=== PATIENT | female | born 1935 | race Caucasian/White ===

== ENCOUNTER 2017-12-30 10:50 | Inpatient (IN) ==
--- NOTE | 2017-12-30 11:43 | Emergency Department Note ---
ED Disposition Clinical Impression: Recurrent pneumonia Disposition: Still a Patient Condition on Discharge: Fair Referrals: Damien Bird MD [Primary Care Provider] - - Critical Care Critical Care Time: No Attestation: On 12/30/17, the high probability of a clinically significant, sudden or life threatening deterioration of the following system(s) required my full and direct attention, intervention and personal management. The time I documented below is in addition to time spent performing reported procedures but includes the following listed in this critical care notation. Medical Decision Making - Carlos A Inquiry Pt receiving controlled substance: No Vital Signs: 12/30/17 11:05 12/30/17 11:25 12/30/17 12:15 Pulse Rate 100 H Pulse Rate [Right Brachial] 88 107 H Respiratory Rate 22 18 Blood Pressure [Right Arm] 135/79 135/79 Blood Pressure Mean [Right Arm] 97 97 Blood Pressure Source [Right Arm] Automatic Cuff Blood Pressure Position [Right Arm] Sitting 02 Sat by Pulse Oximetry 96 97 98 Oxygen Delivery Method Non-Rebreather Nasal Cannula Non-Rebreather Oxygen Flow Rate (LPM) 2 15 - Lab Data Lab Results 12/30/17 11:13: Specimen Source Right brachial, O2 % 100%, ABG pH 7.44, ABG pCO2 44.2, ABG pO2 74.4 L, ABG HCO3 29.3 H, ABG Total CO2 30.7 H, ABG O2 Saturation 95, ABG Base Excess 5.2 H, [place] Test Non applicable 12/30/17 11:44: WBC 9.9, RBC 3.64 L, Hgb 11.8 L, Hct 38.8, MCV 106.6 H, MCH 32.4 H, MCHC 30.4 L, RDW 15.2, Plt Count 217, MPV 8.1, Neut % (Auto) 80.8 H, Lymph % (Auto) 10.2, [place] % (Auto) 8.4, Eos % (Auto) 0.4, Baso % (Auto) 0.2, Neut # (Auto) 8.0 H, Lymph # (Auto) 1.0, [place] # (Auto) 0.8, Eos # (Auto) 0.0, Baso # (Auto) 0.0 12/30/17 11:44: Sodium 140, Potassium 3.5, Chloride 102, Carbon Dioxide 33 H, Anion Gap 8.5, BUN 19 H, Creatinine 0.97, Estimated Creat Clear 39, Estimated GFR 55 L, Est GFR ( Amer) 66, Glucose 127 H, Calcium 9.0, Total Bilirubin 0.6, AST 13 L, ALT 11 L, Alkaline Phosphatase 69, Total Creatine Kinase 16 L, CK-MB (CK-2) < 0.5, CK-MB (CK-2) Rel Index 3.1, Troponin I 0.06, Total Protein 5.9 L, Albumin 2.6 L, Globulin 3.3 H, Albumin/Globulin Ratio 0.8 L 12/30/17 11:44: Lactic Acid 2.4 H 12/30/17 11:44: B-Natriuretic Peptide 449 H 12/30/17 11:44: TSH 0.23 L, Free T4 Index 3.8 L, Thyroxine (T4) 9.6, T3 Uptake 40 H Result diagrams: 12/30/17 11:44 12/30/17 11:44 Orders (Tests/Meds): ORDERS Category Date Time Status Lactic Acid Follow Up (4 hr) Stat Lab 12/30/17 12:18 Ordered Blood Culture Stat Micro 12/30/17 11:44 Received ECG Request by /Irma Stat Y 12/30/17 11:13 Ordered - Radiology Data #1 Image(s): Chest Image Reviewed: Yes I reviewed the patient's radiology image Right mid and lower lung infiltrates - ECG Data Tracing #1 EKG interpreted by Khadar Lewis MD: Rhythm: sinus tachycardia Rate: 107 [place]: normal Ectopy: none Conduction: normal ST Segment Changes: Nonspecific T Wave Changes: none Q Waves: none No evidence of acute ischemia or injury Medical Decision Narrative: 12:50 PM: I have discussed the case with Dr. Reyes for Dr. Bird who agrees to admit the patient to the hospital. We discussed the patient's clinical information, including history, exam, laboratory and radiology results and ED course. Per hospital procedure, I will write temporary bridge inpatient orders on the patient. Specific orders requested by the admitting physician: Vancomycin, clindamycin, and tobramycin General Adult HPI - General Chief complaint: Shortness of Breath/Dyspnea Stated complaint: sob weakness Time Seen by Provider: 12/30/17 11:43 Mode of Arrival: Wheelchair Limitations: No Limitations Description of Symptoms (Recalled from ER Triage Doc. by RN): shortness of air; - History of Present Illness HPI narrative: states that at 4 AM the patient became very weak and oxygen saturation was low. She has a history of recurrent pneumonia. Since October she has been hospitalized 3 times for pneumonia. Family states she got out of the hospital 2 weeks ago. Prior to that she had been on oxygen at night as needed, now is on oxygen 2.5 L 24 hours a day. She had a fever on 3 days ago. It went away with Tylenol. She denies shortness of air currently, denies pain. Family states no vomiting or diarrhea. She does have some chronic problems with swallowing related to previous meningioma, stroke, and throat surgery. Apparently there is some suspicion for aspiration pneumonia. They states she does not really choke much when she eats. She is on thickened liquids. No history of COPD, has never been a smoker. She is on breathing treatments twice a day. She uses an incentive spirometer. - Related Data Home Medications Medication Instructions Recorded Confirmed ALPRAZolam [Xanax 1mg tab] 1 mg PO TIDP PRN 10/16/17 12/30/17 Gabapentin [Gabapentin 300mg Cap] 300 mg PO TID 10/16/17 12/30/17 Metformin HCl [Metformin 500mg 500 mg PO BID 10/16/17 12/30/17 Tablet] Metoprolol Tartrate [Lopressor 25 mg PO BID 10/16/17 12/30/17 25mg tablet] Morphine Sulfate [Morphine Sulfate 30 mg PO HS 10/16/17 12/30/17 ER 30mg Cap] Ropinirole HCl 1 mg PO HS 10/16/17 12/30/17 levETIRAcetam [Levetiracetam] 500 mg PO BID 10/16/17 12/30/17 levothyroxine 75 mcg tablet 75 mcg PO DAILY tab 10/23/17 12/30/17 Aspirin [Aspir 81] 81 mg PO DAILY 10/29/17 12/30/17 Ticagrelor [Brilinta 90mg Tablet] 90 mg PO BID 10/29/17 12/30/17 Pantoprazole Sodium [Protonix 40mg 40 mg PO DAILY 12/03/17 12/30/17 tablet] Umeclidinium Brm/Vilanterol Tr 1 each IH CONSULT PHARMACY 12/03/17 12/30/17 [Anoro Ellipta 62.5-25 Mcg INH] Ipratropium [place] [Atrovent 0.5 mg IH BID 12/30/17 12/30/17 0.5mg/2.5mL neb] Previous Rx's Medication Instructions Recorded Albuterol Sulfate [Albuterol 2.5 mg IH BIDRT #60 vial.neb 12/10/17 0.083% 2.5mg/3mL neb] Allergies Allergy/AdvReac Type Severity Reaction Status Date / Time loratadine [From CLARITIN] AdvReac Intermediate Drowsy Verified 12/03/17 07:23 [facility] History I have reviewed the patient's past medical history: Yes Medical History: Reports:: Anxiety, Atrial Fibrillation, Congestive Heart Failure, Chronic Obstructive Pulmonary Disease (COPD), Cerebrovascular Accident , Hypertension, Seizures Denies:: Cancer, Diabetes Mellitus Type 1, Diabetes Mellitus Type 2, MRSA Other Medical History: Reports: Hypothyroidism Laterality Cases: Bilateral: Tonsillectomy Other Surgeries: Yes: Hysterectomy-Total, Other ([facility]-stents) Amputation: No Fractures: No Comment: Excision of benign meningiomas - Social History Educational Level: Completed High School Smoking Status: Never smoker Alcohol Intake: never Alcohol Intake Frequency:: other Substance Use Type: denies use Occupational Status: disabled Housing: house Household Members: spouse, family - Psychiatric History Expresses thoughts of harming self/others: None Suicide Plan Description: No Plan Pschychiatric History:: Reports:: Anxiety Family Hx:: No significant family history ROS Obtained: Yes All systems reviewed & no additional complaints - Constitutional Constitutional: Reports fever(s), Reports weakness - Cardiovascular Cardiovascular: Denies chest pain - Respiratory Respiratory: Yes cough, Yes dyspnea - Gastrointestinal Gastrointestingal: Denies: abdominal pain, diarrhea, vomiting Physical Exam - General General appearance: alert, in no apparent distress - Head Head exam: atraumatic, normocephalic, normal inspection - Eye Eye exam: Present: normal appearance, PERRL, EOMI - ENT ENT exam: Present: normal exam, normal oropharynx, mucous membranes moist, TM's normal bilaterally, normal external ear exam - Neck Neck exam: Present: normal inspection, full ROM, trachea midline. Absent: meningismus, lymphadenopathy - Chest Chest inspection: Present: normal inspection, symmetric chest wall rise. Absent : tenderness - Respiratory Respiratory exam: Present: normal lung sounds bilaterally. Absent: respiratory distress - Cardiovascular Cardiovascular exam: Present: regular rate, normal rhythm. Absent: JVD - Abdominal Exam Abdominal exam: Present: soft, normal bowel sounds. Absent: distention, tenderness, guarding - Extremities Exam Extremities exam: Present: normal inspection, full ROM, normal capillary refill. Absent: calf tenderness - Back Exam Back exam: Present: normal inspection. Absent: tenderness - Neurological Exam Neurological exam: Present: alert, oriented X3 - Psychiatric Psychiatric exam: Present: normal affect, normal mood - Skin Skin exam: Present: warm, dry, intact, normal color - Lymphatic Lymphatic Findings: no adenopathy
[2017-12-30 12:04] LABS: Basophils % 0.2 % (0.1-2.0); Eosinophils % 0.4 % (0.1-12.0); Hematocrit 38.8 % (37.0-47.0); Hemoglobin 11.8 g/dL (12.2-16.2); Lymphocytes % 10.2 K/mm3 (10-50); Mean Corpuscular HGB Conc 30.4 g/dL (31.8-35.4); Mean Corpuscular Hemoglobin 32.4 pg (27.0-31.2); Mean Corpuscular Volume 106.6 fl (81-99); Mean Platelet Volume 8.1 fl (7.4-10.4); Monocytes # 0.8 K/mm3 (0.1-1.0); Monocytes % 8.4 % (1.7-9.3); Neutrophils % 80.8 % (37.0-80.0); Platelet Count 217 K/mm3 (142-424); Red Blood Count 3.64 M/mm3 (4.20-5.40); Red Cell Distribution Width 15.2 % (11.5-17.5); White Blood Count 9.9 K/mm3 (4.8-10.8)
[2017-12-30 12:21] LABS: ABG Base Excess 5.2 mmol/L (-2.4-2.3); ABG HCO3 29.3 mmhg (22.0-26.0); ABG Oxygen Saturation 95 % (90-100); ABG PCO2 44.2 mmhg (35.0-45.0); ABG PH 7.44 mmol/L (7.35-7.45); ABG PO2 74.4 mmhg (80-100); ABG TCO2 30.7 mmhg (23-27)
[2017-12-30 12:25] LABS: Allen's Test Non Applicable; Oxygen 100% %
[2017-12-30 12:25] LABS: Free Thyroxine Index 3.8 ug/dL (5.93-13.13); T4 (Thyroxine) 9.6 ug/dl (4.7-13.3); Thyroid Stimulating Hormone 0.23 uIU/ml (0.358-3.740)
[2017-12-30 12:30] LABS: Alanine Aminotransferase 11 U/L (12-78); Albumin Level 2.6 gm/dL (3.4-5.0); Albumin/Globulin Ratio 0.8 (1.1-1.8); Alkaline Phosphatase 69 U/L (46-116); Anion Gap 8.5 mEq/L (5-15); Aspartate Amino Transferase 13 U/L (15-37); Bilirubin,Total 0.6 mg/dL (0.2-1.0); Blood Urea Nitrogen 19 mg/dL (7-18); Carbon Dioxide 33 mmol/L (21.0-32.0); Chloride 102 mmol/L (98-107); Creatine Kinase 16 U/L (26-192); Globulin 3.3 gm/dl (1.3-3.2); Glucose 127 mg/dL (74-106); Potassium 3.5 mmoL/L (3.5-5.1); Sodium 140 mmol/L (136-145); Total Protein,Serum 5.9 gm/dL (6.4-8.2)
--- NOTE | 2017-12-30 14:27 | Pharmacy Consult Notes ---
- Pharmacy Consult Date: 12/30/17 Time: 14:25 Referring provider: DR. ESPARZA Reason for Consult:: VANCOMYCIN AND TOBRAMYCIN DOSING Allergies and ADEs:: Allergies Allergy/AdvReac Type Severity Reaction Status Date / Time loratadine [From CLARITIN] AdvReac Intermediate Drowsy Verified 12/03/17 07:23 Home Medications:: Home Medications Medication Instructions Recorded Confirmed Type ALPRAZolam [Xanax 1mg tab] 1 mg PO TIDP PRN 10/16/17 12/30/17 History Gabapentin [Gabapentin 300mg Cap] 300 mg PO TID 10/16/17 12/30/17 History Metformin HCl [Metformin 500mg 500 mg PO BID 10/16/17 12/30/17 History Tablet] Metoprolol Tartrate [Lopressor 25 mg PO BID 10/16/17 12/30/17 History 25mg tablet] Morphine Sulfate [Morphine Sulfate 30 mg PO HS 10/16/17 12/30/17 History ER 30mg Cap] Ropinirole HCl 1 mg PO HS 10/16/17 12/30/17 History levETIRAcetam [Levetiracetam] 500 mg PO BID 10/16/17 12/30/17 History levothyroxine 75 mcg tablet 75 mcg PO DAILY tab 10/23/17 12/30/17 History Aspirin [Aspir 81] 81 mg PO DAILY 10/29/17 12/30/17 History Ticagrelor [Brilinta 90mg Tablet] 90 mg PO BID 10/29/17 12/30/17 History Pantoprazole Sodium [Protonix 40mg 40 mg PO DAILY 12/03/17 12/30/17 History tablet] Umeclidinium Brm/Vilanterol Tr 1 each IH CONSULT PHARMACY 12/03/17 12/30/17 History [Anoro Ellipta 62.5-25 Mcg INH] Ipratropium [place] [Atrovent 0.5 mg IH BID 12/30/17 12/30/17 History 0.5mg/2.5mL neb] Height: 1.57 m Weight: 58.967 kg Laboratory Results:: SRCR=0.97 Medical History: Reports:: Anxiety, Atrial Fibrillation, Cancer, Congestive Heart Failure, Chronic Obstructive Pulmonary Disease (COPD), Coronary Artery Disease, Cerebrovascular Accident, Diabetes Mellitus Type 2, Hyperlipidemia, Hypertension, Myocardial Infarction, Seizures Denies:: Diabetes Mellitus Type 1, MRSA Assessment and Plan - Assessment and plan all Dx Assessment and Plan for all problems:: BASED ON PATIENT FACTORS, RECOMMEND VANCOMYCIN 1250 MG IV Q36H AND TOBRAMYCIN 240 MG IV Q48H. PATIENT IS ALSO ON CLINDAMYCIN 600 MG IV Q6H. WILL OBTAIN TOBRAMYCIN LEVELS AT 4 AND 12 HOURS POST-INFUSION, AND A VANCOMYCIN TROUGH LEVEL PRIOR TO 3RD DOSE. PHARMACY WILL FOLLOW DAILY AND ADJUST APPROPRIATE.
--- NOTE | 2017-12-30 17:00 | History & Physical Report ---
*Admission Date: 12/30/17 *Chief complaint: Low oxygen sats, breathlessness *History of present illness: 82-year-old white female with known emphysema, recurrent pneumonia episodes and history of abnormal swallowing study who came to the emergency department this morning after her noticed that she was hard to arouse and that her O2 saturations were very low. In the emergency department she was found to have significant O2 saturation lowering, new infiltrates on chest x-ray to be mildly dehydrated. Review of records shows multiple admissions over the past month, recurrent pneumonia episodes. Abnormal barium swallow testing last admission. Family reports that she is on a pured diet at home. She is very frail and increasingly afflicted with anorexia. Patient herself reports that she has no pain. However is sluggish to communicate. [facility] History Medical History: Reports:: Anxiety, Atrial Fibrillation, Cancer, Congestive Heart Failure, Chronic Obstructive Pulmonary Disease (COPD), Coronary Artery Disease, Cerebrovascular Accident, Diabetes Mellitus Type 2, Hyperlipidemia, Hypertension, Myocardial Infarction, Seizures Denies:: Diabetes Mellitus Type 1, MRSA Other Medical History: Reports: Hypothyroidism Laterality Cases: Bilateral: Tonsillectomy Other Surgeries: Yes: Cardiac Catheterization, Hysterectomy-Total, Other ([facility]- stents) Amputation: No Fractures: No - *Social History Educational Level: Completed High School Smoking Status: Never smoker Alcohol Intake: never Alcohol Intake Frequency:: other Substance Use Type: denies use Occupational Status: disabled Housing: house Household Members: spouse, family - Psychiatric History Expresses thoughts of harming self/others: None Suicide Plan Description: No Plan Pschychiatric History:: Reports:: Anxiety *Family Hx:: No significant family history Review of Systems - Review of Systems Review of systems:: unable to obtain, other, pertinent systems reviewed and negative unless documented below - Constitutional Reports anorexia, Reports daytime sleepiness, Reports lack of energy - ENT Reports abnormal hearing - *Cardiovascular Reports shortness of breath, Denies chest pain, Denies chest pain at rest, Denies chest pain with activity - *Gastrointestinal Reports abdominal pain - *Musculoskeletal Reports abnormal walking - *Neurologic Reports weakness - Endocrine Denies cold intolerance, Denies excessive sweating - Hematologic/Lymphatic Denies easy bleeding, Denies easy bruising Meds Home Medications Medication Instructions Recorded Confirmed Type ALPRAZolam [Xanax 1mg tab] 1 mg PO TIDP PRN 10/16/17 12/30/17 History Gabapentin [Gabapentin 300mg Cap] 300 mg PO TID 10/16/17 12/30/17 History Metformin HCl [Metformin 500mg 500 mg PO BID 10/16/17 12/30/17 History Tablet] Metoprolol Tartrate [Lopressor 25 mg PO BID 10/16/17 12/30/17 History 25mg tablet] Morphine Sulfate [Morphine Sulfate 30 mg PO HS 10/16/17 12/30/17 History ER 30mg Cap] Ropinirole HCl 1 mg PO HS 10/16/17 12/30/17 History levETIRAcetam [Levetiracetam] 500 mg PO BID 10/16/17 12/30/17 History levothyroxine 75 mcg tablet 75 mcg PO DAILY tab 10/23/17 12/30/17 History Aspirin [Aspir 81] 81 mg PO DAILY 10/29/17 12/30/17 History Ticagrelor [Brilinta 90mg Tablet] 90 mg PO BID 10/29/17 12/30/17 History Pantoprazole Sodium [Protonix 40mg 40 mg PO DAILY 12/03/17 12/30/17 History tablet] Umeclidinium Brm/Vilanterol Tr 1 each IH CONSULT PHARMACY 12/03/17 12/30/17 History [Anoro Ellipta 62.5-25 Mcg INH] Cetirizine HCl 10 mg PO DAILYP PRN 12/30/17 12/30/17 History Ipratropium [place] [Atrovent 0.5 mg IH BID 12/30/17 12/30/17 History 0.5mg/2.5mL neb] Sennosides/Docusate Sodium [Stool 240 mg PO BID 12/30/17 12/30/17 History Softener-Laxative Tablet] Allergies Allergy/AdvReac Type Severity Reaction Status Date / Time loratadine [From CLARITIN] AdvReac Intermediate Drowsy Verified 12/03/17 07:23 Exam Vital signs and Labs for Last 24 Hours: Temp Pulse Resp BP Pulse Ox 100.1 F H 82 24 120/36 92 L 12/30/17 16:00 12/30/17 16:00 12/30/17 16:21 12/30/17 15:31 12/30/17 16:21 Laboratory Results - last 24 hr 12/30/17 16:00: Lactic Acid Fup @ 4Hr 1.3 I & O for Last 24 hours: Intake & Output 12/28/17 12/29/17 12/30/17 12/31/17 11:59 11:59 11:59 11:59 Weight 133 lb 6 oz Narrative: Patient is sleeping, when awakened is arousable, but poorly communicative. Very somnolent. Lungs have rhonchi and crackles in both bases. Abdomen is soft. Heart rate is regular. Perfusion in her distal extremities is sluggish but present. She able to move her extremities well. Assessment and Plan (1) Recurrent pneumonia Current visit: Yes Status: Acute Category: Medical Code(s): J18.9 - Pneumonia, unspecified organism (2) Acute exacerbation of chronic obstructive airways disease Current visit: No Status: Acute Category: Medical Code(s): J44.1 - Chronic obstructive pulmonary disease with (acute) exacerbation (3) Aspiration pneumonia Current visit: No Status: Acute Category: Medical Code(s): J69.0 - Pneumonitis due to inhalation of food and vomit (4) CAP (community acquired pneumonia) Current visit: No Status: Acute Qualifiers: Laterality: right Lung location: unspecified part of lung Qualified Code( s): J18.9 - Pneumonia, unspecified organism Category: Medical Code(s): J18.9 - Pneumonia, unspecified organism (5) COPD exacerbation Current visit: No Status: Acute Category: Medical Code(s): J44.1 - Chronic obstructive pulmonary disease with (acute) exacerbation (6) Chest pain Current visit: No Status: Acute Qualifiers: Chest pain type: other chest pain Qualified Code(s): R07.89 - Other chest pain; R07.8 - Other chest pain Category: Medical Code(s): R07.9 - Chest pain, unspecified (7) Hypoxia Current visit: No Status: Acute Category: Medical Code(s): R09.02 - Hypoxemia (8) Pneumonia Current visit: No Status: Acute Qualifiers: Pneumonia type: aspiration pneumonia Aspiration pneumonia type: unspecified Laterality: right Lung location: lower lobe of lung Qualified Code(s): J69.0 - Pneumonitis due to inhalation of food and vomit Category: Medical Code(s): J18.9 - Pneumonia, unspecified organism (9) Pneumonia of right lower lobe due to infectious organism Current visit: No Status: Acute Category: Medical Code(s): J18.1 - Lobar pneumonia, unspecified organism (10) Seizure disorder Current visit: No Status: Acute Category: Medical Code(s): G40.909 - Epilepsy, unspecified, not intractable, without status epilepticus (11) Unstable angina Current visit: No Status: Acute Category: Medical Code(s): I20.0 - Unstable angina (12) COPD (chronic obstructive pulmonary disease) Current visit: No Status: Chronic Category: Medical Code(s): J44.9 - Chronic obstructive pulmonary disease, unspecified (13) CVA (cerebral vascular accident) Current visit: No Status: Chronic Qualifiers: CVA mechanism: unspecified Qualified Code(s): I63.9 - Cerebral infarction, unspecified Category: Medical Code(s): I63.9 - Cerebral infarction, unspecified (14) Coronary artery disease Current visit: No Status: Chronic Qualifiers: Coronary Disease-Associated Artery/Lesion type: [place] artery [place] vs. transplanted heart: [place] heart Associated angina: angina presence unspecified Qualified Code(s): I25.10 - Atherosclerotic heart disease of [place] coronary artery without angina pectoris Category: Medical Code(s): I25.10 - Atherosclerotic heart disease of [place] coronary artery without angina pectoris (15) Diabetes mellitus type 2 in nonobese Current visit: No Status: Chronic Category: Medical Code(s): E11.9 - Type 2 diabetes mellitus without complications (16) HLD (hyperlipidemia) Current visit: No Status: Chronic Qualifiers: Hyperlipidemia type: other hyperlipidemia Qualified Code(s): E78.4 - Other hyperlipidemia Category: Medical Code(s): E78.5 - Hyperlipidemia, unspecified (17) HTN (hypertension) Current visit: No Status: Chronic Qualifiers: Hypertension type: essential hypertension Qualified Code(s): I10 - Essential (primary) hypertension Category: Medical Code(s): I10 - Essential (primary) hypertension (18) History of cancer of head or neck Current visit: No Status: Chronic Category: Medical Code(s): Z85.89 - Personal history of malignant neoplasm of other organs and systems (19) Mitral regurgitation Current visit: No Status: Chronic Qualifiers: Cardiac valve disease etiology: nonrheumatic Qualified Code(s): I34.0 - Nonrheumatic mitral (valve) insufficiency Category: Medical Code(s): I34.0 - Nonrheumatic mitral (valve) insufficiency (20) Pulmonary hypertension Current visit: No Status: Chronic Category: Medical Code(s): I27.20 - Pulmonary hypertension, unspecified (21) SOB (shortness of breath) Current visit: No Status: Chronic Category: Medical Code(s): R06.02 - Shortness of breath - Assessment and plan all Dx Assessment and Plan for all problems:: Significant disease burden in this aged female with repetitive pneumonias and end-stage emphysema. Aggressive antibiotic therapy with vancomycin, clindamycin for anaerobic/aspiration coverage and tobramycin given her recent hospitalization and risk for Pseudomonas. Observe labs tomorrow. Continue current medications from home.
--- NOTE | 2017-12-31 07:17 | Progress Note ---
Internal Medicine - PN: Subj *Date: 12/31/17 *Time: 07:15 Interval history: Patient is without complaints this morning. Her is at bedside. Her night was uneventful. Her does tell me that she really struggles with thickened liquids at home and has been drinking plain orange juice as well as coffee and Glucerna. He continues to use her incentive spirometer at home and inspiratory effort can produce 500 mL's. Exam Vital signs and Labs for Last 24 Hours: Temp Pulse Resp BP Pulse Ox 98.7 F 69 16 96/58 90 L 12/31/17 03:43 12/31/17 05:54 12/31/17 03:43 12/31/17 03:43 12/31/17 05:54 Laboratory Results - last 24 hr 12/30/17 16:00: Lactic Acid Fup @ 4Hr 1.3 12/30/17 22:05: Random Tobramycin 8.9 12/31/17 06:30: Random Tobramycin 4.4 I & O for Last 24 hours: Intake & Output 12/28/17 12/29/17 12/30/17 12/31/17 11:59 11:59 11:59 11:59 Output Total 50 / 50 Balance -50 / -50 Weight 135 lb 6 oz Narrative: Patient is in no distress and appears comfortable this morning. Nasal cannula is in place. Lung exam reveals significant right-sided rhonchi heard throughout the entire right lung field. Left sound has primarily transmitted sounds from the right. Heart has a regular rate and rhythm. Assessment and Plan (1) Recurrent pneumonia Current visit: Yes Status: Acute Category: Medical Code(s): J18.9 - Pneumonia, unspecified organism (2) Acute exacerbation of chronic obstructive airways disease Current visit: No Status: Acute Category: Medical Code(s): J44.1 - Chronic obstructive pulmonary disease with (acute) exacerbation (3) Aspiration pneumonia Current visit: No Status: Acute Category: Medical Code(s): J69.0 - Pneumonitis due to inhalation of food and vomit (4) CAP (community acquired pneumonia) Current visit: No Status: Acute Qualifiers: Laterality: right Lung location: unspecified part of lung Qualified Code( s): J18.9 - Pneumonia, unspecified organism Category: Medical Code(s): J18.9 - Pneumonia, unspecified organism (5) COPD exacerbation Current visit: No Status: Acute Category: Medical Code(s): J44.1 - Chronic obstructive pulmonary disease with (acute) exacerbation (6) Chest pain Current visit: No Status: Acute Qualifiers: Chest pain type: other chest pain Qualified Code(s): R07.89 - Other chest pain; R07.8 - Other chest pain Category: Medical Code(s): R07.9 - Chest pain, unspecified (7) Hypoxia Current visit: No Status: Acute Category: Medical Code(s): R09.02 - Hypoxemia (8) Pneumonia Current visit: No Status: Acute Qualifiers: Pneumonia type: aspiration pneumonia Aspiration pneumonia type: unspecified Laterality: right Lung location: lower lobe of lung Qualified Code(s): J69.0 - Pneumonitis due to inhalation of food and vomit Category: Medical Code(s): J18.9 - Pneumonia, unspecified organism (9) Pneumonia of right lower lobe due to infectious organism Current visit: No Status: Acute Category: Medical Code(s): J18.1 - Lobar pneumonia, unspecified organism (10) Seizure disorder Current visit: No Status: Acute Category: Medical Code(s): G40.909 - Epilepsy, unspecified, not intractable, without status epilepticus (11) Unstable angina Current visit: No Status: Acute Category: Medical Code(s): I20.0 - Unstable angina (12) COPD (chronic obstructive pulmonary disease) Current visit: No Status: Chronic Category: Medical Code(s): J44.9 - Chronic obstructive pulmonary disease, unspecified (13) CVA (cerebral vascular accident) Current visit: No Status: Chronic Qualifiers: CVA mechanism: unspecified Qualified Code(s): I63.9 - Cerebral infarction, unspecified Category: Medical Code(s): I63.9 - Cerebral infarction, unspecified (14) Coronary artery disease Current visit: No Status: Chronic Qualifiers: Coronary Disease-Associated Artery/Lesion type: [place] artery [place] vs. transplanted heart: [place] heart Associated angina: angina presence unspecified Qualified Code(s): I25.10 - Atherosclerotic heart disease of [place] coronary artery without angina pectoris Category: Medical Code(s): I25.10 - Atherosclerotic heart disease of [place] coronary artery without angina pectoris (15) Diabetes mellitus type 2 in nonobese Current visit: No Status: Chronic Category: Medical Code(s): E11.9 - Type 2 diabetes mellitus without complications (16) HLD (hyperlipidemia) Current visit: No Status: Chronic Qualifiers: Hyperlipidemia type: other hyperlipidemia Qualified Code(s): E78.4 - Other hyperlipidemia Category: Medical Code(s): E78.5 - Hyperlipidemia, unspecified (17) HTN (hypertension) Current visit: No Status: Chronic Qualifiers: Hypertension type: essential hypertension Qualified Code(s): I10 - Essential (primary) hypertension Category: Medical Code(s): I10 - Essential (primary) hypertension (18) History of cancer of head or neck Current visit: No Status: Chronic Category: Medical Code(s): Z85.89 - Personal history of malignant neoplasm of other organs and systems (19) Mitral regurgitation Current visit: No Status: Chronic Qualifiers: Cardiac valve disease etiology: nonrheumatic Qualified Code(s): I34.0 - Nonrheumatic mitral (valve) insufficiency Category: Medical Code(s): I34.0 - Nonrheumatic mitral (valve) insufficiency (20) Pulmonary hypertension Current visit: No Status: Chronic Category: Medical Code(s): I27.20 - Pulmonary hypertension, unspecified (21) SOB (shortness of breath) Current visit: No Status: Chronic Category: Medical Code(s): R06.02 - Shortness of breath - Assessment and plan all Dx Assessment and Plan for all problems:: Patient will have repeat swallowing evaluation today. Recurrent pneumonias are certainly suspicious for aspiration. We will await swallowing evaluation and then decide on further interventions. Patient and family have requested pulmonology evaluation
--- NOTE | 2017-12-31 08:42 | Pharmacy Consult Notes ---
[facility] Pharmacy VTE Monitoring - Patient Demographics Admission date: 12/30/17 Report Date: 12/31/17 Time: 08:42 Allergies/Adverse Reactions: Patient Allergies loratadine [From CLARITIN] Adverse Reaction (Intermediate, Verified 12/03/17 07: 23) Drowsy Height: 1.57 m Weight: 61.405 kg Patient Problems: Current Active Problems Recurrent pneumonia (Acute) - VTE Risk Labs: VTE Related Lab Results Hgb 11.8 g/dL (12.2-16.2) L 12/30/17 11:44 Hct 38.8 % (37.0-47.0) 12/30/17 11:44 Plt Count 217 K/mm3 (142-424) 12/30/17 11:44 BUN 19 mg/dL (7-18) H 12/30/17 11:44 Creatinine 0.97 mg/dL (0.55-1.02) 12/30/17 11:44 Estimated Creat Clear 39 mL/min (0-300) 12/30/17 11:44 VTE Risk Level: Moderate Risk - Prophylaxis VTE Prophylaxis Ordered?: Yes Types of VTE Prophylaxis: TEDS Knee High Location of Applied Device: Bilateral Lower Extremeties - VTE Diagnosis Confirmed Treatment or plan recommended: Continue Current Treatment
--- NOTE | 2017-12-31 11:13 | Pharmacy Consult Notes ---
- Pharmacy Consult Date: 12/31/17 Time: 11:11 Referring provider: DR. ESPARZA Reason for Consult:: TOBRAMYCIN LEVELS Allergies and ADEs:: Allergies Allergy/AdvReac Type Severity Reaction Status Date / Time loratadine [From CLARITIN] AdvReac Intermediate Drowsy Verified 12/03/17 07:23 Home Medications:: Home Medications Medication Instructions Recorded Confirmed Type ALPRAZolam [Xanax 1mg tab] 1 mg PO TIDP PRN 10/16/17 12/30/17 History Gabapentin [Gabapentin 300mg Cap] 300 mg PO TID 10/16/17 12/30/17 History Metformin HCl [Metformin 500mg 500 mg PO BID 10/16/17 12/30/17 History Tablet] Metoprolol Tartrate [Lopressor 25 mg PO BID 10/16/17 12/30/17 History 25mg tablet] Morphine Sulfate [Morphine Sulfate 30 mg PO HS 10/16/17 12/30/17 History ER 30mg Cap] Ropinirole HCl 1 mg PO HS 10/16/17 12/30/17 History levETIRAcetam [Levetiracetam] 500 mg PO BID 10/16/17 12/30/17 History levothyroxine 75 mcg tablet 75 mcg PO DAILY tab 10/23/17 12/30/17 History Aspirin [Aspir 81] 81 mg PO DAILY 10/29/17 12/30/17 History Ticagrelor [Brilinta 90mg Tablet] 90 mg PO BID 10/29/17 12/30/17 History Pantoprazole Sodium [Protonix 40mg 40 mg PO DAILY 12/03/17 12/30/17 History tablet] Umeclidinium Brm/Vilanterol Tr 1 puff IH DAILY 12/03/17 12/31/17 History [Anoro Ellipta 62.5-25 Mcg INH] Cetirizine HCl 10 mg PO DAILY 12/30/17 12/31/17 History Ipratropium [place] [Atrovent 2.5 ml IH BID 12/30/17 12/31/17 History 0.5mg/2.5mL neb] Sennosides/Docusate Sodium [Stool 240 mg PO BID 12/30/17 12/30/17 History Softener-Laxative Tablet] Albuterol Sulfate [Albuterol 3 ml IH BID 12/31/17 12/31/17 History 0.083% 2.5mg/3mL neb] Height: 1.57 m Weight: 61.405 kg Laboratory Results:: Laboratory Results - last 24 hr 12/30/17 16:00: Lactic Acid Fup @ 4Hr 1.3 12/30/17 22:05: Random Tobramycin 8.9 12/31/17 06:30: Random Tobramycin 4.4 Medical History: Reports:: Anxiety, Atrial Fibrillation, Cancer, Congestive Heart Failure, Chronic Obstructive Pulmonary Disease (COPD), Coronary Artery Disease, Cerebrovascular Accident, Diabetes Mellitus Type 2, Hyperlipidemia, Hypertension, Myocardial Infarction, Seizures Denies:: Diabetes Mellitus Type 1, MRSA Assessment and Plan (1) Recurrent pneumonia Current visit: Yes Status: Acute Category: Medical Code(s): J18.9 - Pneumonia, unspecified organism (2) Acute exacerbation of chronic obstructive airways disease Current visit: No Status: Acute Category: Medical Code(s): J44.1 - Chronic obstructive pulmonary disease with (acute) exacerbation (3) Aspiration pneumonia Current visit: No Status: Acute Category: Medical Code(s): J69.0 - Pneumonitis due to inhalation of food and vomit (4) CAP (community acquired pneumonia) Current visit: No Status: Acute Qualifiers: Laterality: right Lung location: unspecified part of lung Qualified Code( s): J18.9 - Pneumonia, unspecified organism Category: Medical Code(s): J18.9 - Pneumonia, unspecified organism (5) COPD exacerbation Current visit: No Status: Acute Category: Medical Code(s): J44.1 - Chronic obstructive pulmonary disease with (acute) exacerbation (6) Chest pain Current visit: No Status: Acute Qualifiers: Chest pain type: other chest pain Qualified Code(s): R07.89 - Other chest pain; R07.8 - Other chest pain Category: Medical Code(s): R07.9 - Chest pain, unspecified (7) Hypoxia Current visit: No Status: Acute Category: Medical Code(s): R09.02 - Hypoxemia (8) Pneumonia Current visit: No Status: Acute Qualifiers: Pneumonia type: aspiration pneumonia Aspiration pneumonia type: unspecified Laterality: right Lung location: lower lobe of lung Qualified Code(s): J69.0 - Pneumonitis due to inhalation of food and vomit Category: Medical Code(s): J18.9 - Pneumonia, unspecified organism (9) Pneumonia of right lower lobe due to infectious organism Current visit: No Status: Acute Category: Medical Code(s): J18.1 - Lobar pneumonia, unspecified organism (10) Seizure disorder Current visit: No Status: Acute Category: Medical Code(s): G40.909 - Epilepsy, unspecified, not intractable, without status epilepticus (11) Unstable angina Current visit: No Status: Acute Category: Medical Code(s): I20.0 - Unstable angina (12) COPD (chronic obstructive pulmonary disease) Current visit: No Status: Chronic Category: Medical Code(s): J44.9 - Chronic obstructive pulmonary disease, unspecified (13) CVA (cerebral vascular accident) Current visit: No Status: Chronic Qualifiers: CVA mechanism: unspecified Qualified Code(s): I63.9 - Cerebral infarction, unspecified Category: Medical Code(s): I63.9 - Cerebral infarction, unspecified (14) Coronary artery disease Current visit: No Status: Chronic Qualifiers: Coronary Disease-Associated Artery/Lesion type: [place] artery [place] vs. transplanted heart: [place] heart Associated angina: angina presence unspecified Qualified Code(s): I25.10 - Atherosclerotic heart disease of [place] coronary artery without angina pectoris Category: Medical Code(s): I25.10 - Atherosclerotic heart disease of [place] coronary artery without angina pectoris (15) Diabetes mellitus type 2 in nonobese Current visit: No Status: Chronic Category: Medical Code(s): E11.9 - Type 2 diabetes mellitus without complications (16) HLD (hyperlipidemia) Current visit: No Status: Chronic Qualifiers: Hyperlipidemia type: other hyperlipidemia Qualified Code(s): E78.4 - Other hyperlipidemia Category: Medical Code(s): E78.5 - Hyperlipidemia, unspecified (17) HTN (hypertension) Current visit: No Status: Chronic Qualifiers: Hypertension type: essential hypertension Qualified Code(s): I10 - Essential (primary) hypertension Category: Medical Code(s): I10 - Essential (primary) hypertension (18) History of cancer of head or neck Current visit: No Status: Chronic Category: Medical Code(s): Z85.89 - Personal history of malignant neoplasm of other organs and systems (19) Mitral regurgitation Current visit: No Status: Chronic Qualifiers: Cardiac valve disease etiology: nonrheumatic Qualified Code(s): I34.0 - Nonrheumatic mitral (valve) insufficiency Category: Medical Code(s): I34.0 - Nonrheumatic mitral (valve) insufficiency (20) Pulmonary hypertension Current visit: No Status: Chronic Category: Medical Code(s): I27.20 - Pulmonary hypertension, unspecified (21) SOB (shortness of breath) Current visit: No Status: Chronic Category: Medical Code(s): R06.02 - Shortness of breath - Assessment and plan all Dx Assessment and Plan for all problems:: BASED ON CALCULATED TOBRAMYCIN CMAX OF 11.42 MCG/ML AND CMIN OF 0.23 MCG/ML, RECOMMEND CONTINUING WITH CURRENT DOSE AND INTERVAL OF TOBRAMYCIN 240 MG Q48H AT THIS TIME. PHARMACY WILL FOLLOW DAILY AND ADJUST APPROPRIATE. ZOË FIELDS, PHARMD
--- NOTE | 2018-01-01 07:32 | Progress Note ---
Internal Medicine - PN: Subj *Date: 01/01/18 *Time: 07:31 Interval history: Patient complains of left arm pain this morning around the shoulder joint. Otherwise she denies complaints. She is now on honey thickened liquids which she is going to make an attempt to tolerate. She has admitted she does not like thickener in her liquids. But she is aware that this may help keep her from aspirating. Exam Vital signs and Labs for Last 24 Hours: Temp Pulse Resp BP Pulse Ox 99.1 F 70 16 136/46 90 L 01/01/18 03:37 01/01/18 06:03 01/01/18 03:37 01/01/18 03:37 01/01/18 06:03 I & O for Last 24 hours: Intake & Output 12/29/17 12/30/17 12/31/17 01/01/18 11:59 11:59 11:59 11:59 Intake Total 0 / 0 999 / 999 Output Total 50 / 50 350 / 350 Balance -50 / -50 649 / 649 Weight 135 lb 6 oz 137 lb 9 oz Narrative: She is in no distress. Lung exam continues to have rhonchi on the right although less prominent than yesterday. Heart has a regular rate and rhythm. Musculoskeletal exam reveals tenderness on the left lateral shoulder around the greater trochanter. Assessment and Plan (1) Recurrent pneumonia Current visit: Yes Status: Acute Category: Medical Code(s): J18.9 - Pneumonia, unspecified organism (2) Acute exacerbation of chronic obstructive airways disease Current visit: No Status: Acute Category: Medical Code(s): J44.1 - Chronic obstructive pulmonary disease with (acute) exacerbation (3) Aspiration pneumonia Current visit: No Status: Acute Category: Medical Code(s): J69.0 - Pneumonitis due to inhalation of food and vomit (4) CAP (community acquired pneumonia) Current visit: No Status: Acute Qualifiers: Laterality: right Lung location: unspecified part of lung Qualified Code( s): J18.9 - Pneumonia, unspecified organism Category: Medical Code(s): J18.9 - Pneumonia, unspecified organism (5) COPD exacerbation Current visit: No Status: Acute Category: Medical Code(s): J44.1 - Chronic obstructive pulmonary disease with (acute) exacerbation (6) Chest pain Current visit: No Status: Acute Qualifiers: Chest pain type: other chest pain Qualified Code(s): R07.89 - Other chest pain; R07.8 - Other chest pain Category: Medical Code(s): R07.9 - Chest pain, unspecified (7) Hypoxia Current visit: No Status: Acute Category: Medical Code(s): R09.02 - Hypoxemia (8) Pneumonia Current visit: No Status: Acute Qualifiers: Pneumonia type: aspiration pneumonia Aspiration pneumonia type: unspecified Laterality: right Lung location: lower lobe of lung Qualified Code(s): J69.0 - Pneumonitis due to inhalation of food and vomit Category: Medical Code(s): J18.9 - Pneumonia, unspecified organism (9) Pneumonia of right lower lobe due to infectious organism Current visit: No Status: Acute Category: Medical Code(s): J18.1 - Lobar pneumonia, unspecified organism (10) Seizure disorder Current visit: No Status: Acute Category: Medical Code(s): G40.909 - Epilepsy, unspecified, not intractable, without status epilepticus (11) Unstable angina Current visit: No Status: Acute Category: Medical Code(s): I20.0 - Unstable angina (12) COPD (chronic obstructive pulmonary disease) Current visit: No Status: Chronic Category: Medical Code(s): J44.9 - Chronic obstructive pulmonary disease, unspecified (13) CVA (cerebral vascular accident) Current visit: No Status: Chronic Qualifiers: CVA mechanism: unspecified Qualified Code(s): I63.9 - Cerebral infarction, unspecified Category: Medical Code(s): I63.9 - Cerebral infarction, unspecified (14) Coronary artery disease Current visit: No Status: Chronic Qualifiers: Coronary Disease-Associated Artery/Lesion type: [place] artery [place] vs. transplanted heart: [place] heart Associated angina: angina presence unspecified Qualified Code(s): I25.10 - Atherosclerotic heart disease of [place] coronary artery without angina pectoris Category: Medical Code(s): I25.10 - Atherosclerotic heart disease of [place] coronary artery without angina pectoris (15) Diabetes mellitus type 2 in nonobese Current visit: No Status: Chronic Category: Medical Code(s): E11.9 - Type 2 diabetes mellitus without complications (16) HLD (hyperlipidemia) Current visit: No Status: Chronic Qualifiers: Hyperlipidemia type: other hyperlipidemia Qualified Code(s): E78.4 - Other hyperlipidemia Category: Medical Code(s): E78.5 - Hyperlipidemia, unspecified (17) HTN (hypertension) Current visit: No Status: Chronic Qualifiers: Hypertension type: essential hypertension Qualified Code(s): I10 - Essential (primary) hypertension Category: Medical Code(s): I10 - Essential (primary) hypertension (18) History of cancer of head or neck Current visit: No Status: Chronic Category: Medical Code(s): Z85.89 - Personal history of malignant neoplasm of other organs and systems (19) Mitral regurgitation Current visit: No Status: Chronic Qualifiers: Cardiac valve disease etiology: nonrheumatic Qualified Code(s): I34.0 - Nonrheumatic mitral (valve) insufficiency Category: Medical Code(s): I34.0 - Nonrheumatic mitral (valve) insufficiency (20) Pulmonary hypertension Current visit: No Status: Chronic Category: Medical Code(s): I27.20 - Pulmonary hypertension, unspecified (21) SOB (shortness of breath) Current visit: No Status: Chronic Category: Medical Code(s): R06.02 - Shortness of breath - Assessment and plan all Dx Assessment and Plan for all problems:: Continue current antibiotics as well as dietary modifications. Pulmonology consult today. At present patient is improving
--- NOTE | 2018-01-01 14:38 | Consult Report ---
*Admission Date: 12/30/17 *Chief complaint: I got pneumonia again. *History of present illness: Mrs. Harrington is an 82-year-old woman who has the significant past history of a meningioma in 2001. 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 I believe she had seizures at that time which were controlled with Keppra and she was also placed on gabapentin and morphine for chronic pain on the left side. She was able to walk with assistance and seemed to do fairly well over the years until this past year when she developed more breathlessness on exertion and was diagnosed with COPD. She never smoked cigarettes and, to her knowledge, she does not have COPD. She was given Anoro but is sure it helped. She had been on nocturnal oxygen for a while and has been on continuous oxygen this year. She had pneumonia in the right lower lobe in 2013 and perhaps other episodes not document by chest x-ray over the years. Since last summer, she has had pneumonia several times and in no and that she has a problem with deglutition. She has been advised how to chew and swallow her foods to use thickened liquids but I understand has not always follow directions. Because of the stroke, she tends to lean toward her right side and sleep on her right side at night, even when her head is elevated. She came in this time with a rather sudden onset of unresponsiveness and a profound drop in her oxygen saturation. She was discovered to have another pneumonia on the right side and was treated with antibiotics. She is much more alert now. She does have a cough which is productive but she swallows that material before bringing it up she has had no fever or chills here and no chest pain. She has chronic pain, likely neuropathic, on her left side. She has had no abdominal complaints. Her appetite is fair. She has coronary artery disease and had cardiac catheterization in September of this year where severe three-vessel disease was identified and she had stents placed in the right coronary artery. She currently has no anginal type chest pain. The family's history is a little vague in terms of the timeline of some of these events but they believe she had grand mal seizures sometime last year at which time Keppra was added to gabapentin. Past medical surgical history is significant for the meningioma, subsequent stroke and seizure disorder. She has also had a tubal ligation and hysterectomy. 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 She has diabetes, hypertension and history of a heart arrhythmia (I believe) as well as hypothyroidism. She has no medication allergies, she told me. Social history: She has a high school education and has been for 40 years to her current who was at her bedside. He has 5 children and "many, many grandchildren, great-grandchildren and great great grandchildren." Some are at the bedside. Review of systems: She currently has no headache or visual difficulty. She is edentulous. She has had no rash. She currently has no abdominal complaints and is not constipated. She has no nausea. She may have some arthritis in her hands but most of her pain has been in the left arm and leg. Apart from those symptoms mentioned here and in the present illness, the rest of a 14 point review of systems is negative. Family history: There is a family history of COPD in her father but he smoked. On physical examination, Mrs. Harrington is a very pleasant and alert, pale woman who is sitting in bed at a 45 angle, leaning toward her right side. She is articulate and her memory is fair. Vital signs: See below. HEENT: Sclerae clear; conjunctivae pink; EOMs full; external nares show no lesions; oropharynx is Mallampati III. She is edentulous. The left soft palate does not seem elevate Neck: No JVD; there is a woody feeling over the left neck extending to just below the left clavicle. There is a large scar there. I cannot feel the left carotid pulse but the right carotid is 2+ and there is a loud bruit. Chest: Asymmetry of expansion with less expansion on the left. There is dullness by percussion at the right base with decreased breath sounds there. There are inspiratory and expiratory low pitched wheezes at the right base and low pitched inspiratory crackles there as well. The rest of the lung yoder are clear. Heart: Regular rhythm; grade 1/6 systolic ejection murmur at the base. Abdomen: Bowel sounds are hyperactive; soft, nontender, no masses or organomegaly. Skin: No rash Extremities: No clubbing or edema Neurological: She has a mildly reduced gag reflex. I put a gloved finger down her throat. 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 The right also has a weak ball truing machine operator. There is aspect knife rigidity of the left arm. I did not get her out of bed but she can apparently walk with assistance. I reviewed all of her x-rays including a chest x-ray from 2013 when she also presented with a similar appearing infiltrate on the right. I reviewed CT scan as well. She does have emphysema despite not smoking ever. I reviewed her recent laboratory data. Her MCV has been high in the past and it is currently. Assessment and plan: Mrs. Harrington has had recurrent pneumonias and they all appear to occur on the right side and are, as you know, likely related to aspiration. They have been counseled by the speech pathologist and you about the importance of chewing and swallowing food carefully and using those measures that she has been taught to avoid aspiration. She is 82 and limited in her mobility and so her care is palliative. She obviously needs oxygen currently for acute respiratory failure. Her blood cultures are negative and no sputum culture was obtained. I would recommend de-escalating antibiotics because of the potential for toxicity of the ones that she is on. I would recommend using Unasyn. She does not believe she is allergic to penicillin. The last chest x-ray shows very dense consolidation or effusion on the right and I recommended a CT scan to determine whether or not there is collapse of the lung a large parapneumonic effusion. She has had an elevated MCV for some time and I recommended a B12 and folate level. The changes in her level of consciousness may be related to recurrent aspiration and hypoxemia but her family recalls that Keppra caused sedation years ago and I wonder whether or not the combination of Keppra and gabapentin contribute to this. It does seem unlikely to me since she is on both now and is quite alert. I would be happy to follow-up with her as an outpatient. [facility] History Medical History: Reports:: Anxiety, Atrial Fibrillation, Cancer, Congestive Heart Failure, Chronic Obstructive Pulmonary Disease (COPD), Coronary Artery Disease, Cerebrovascular Accident, Diabetes Mellitus Type 2, Hyperlipidemia, Hypertension, Myocardial Infarction, Seizures Denies:: Diabetes Mellitus Type 1, MRSA Other Medical History: Reports: Hypothyroidism Laterality Cases: Bilateral: Tonsillectomy Other Surgeries: Yes: Cardiac Catheterization, Hysterectomy-Total, Other (LHC- stents) Amputation: No Fractures: No - *Social History Educational Level: Completed High School Smoking Status: Never smoker Alcohol Intake: never Alcohol Intake Frequency:: other Substance Use Type: denies use Occupational Status: disabled Housing: house Household Members: spouse, family - Psychiatric History Expresses thoughts of harming self/others: None Suicide Plan Description: No Plan Pschychiatric History:: Reports:: Anxiety *Family Hx:: No significant family history Review of Systems - Review of Systems Review of systems:: other See above - *Neurologic Reports abnormal walking, Reports abnormal hearing, Reports weakness Meds Home Medications Medication Instructions Recorded Confirmed Type ALPRAZolam [Xanax 1mg tab] 1 mg PO TIDP PRN 10/16/17 12/30/17 History Gabapentin [Gabapentin 300mg Cap] 300 mg PO TID 10/16/17 12/30/17 History Metformin HCl [Metformin 500mg 500 mg PO BID 10/16/17 12/30/17 History Tablet] Metoprolol Tartrate [Lopressor 25 mg PO BID 10/16/17 12/30/17 History 25mg tablet] Morphine Sulfate [Morphine Sulfate 30 mg PO HS 10/16/17 12/30/17 History ER 30mg Cap] Ropinirole HCl 1 mg PO HS 10/16/17 12/30/17 History levETIRAcetam [Levetiracetam] 500 mg PO BID 10/16/17 12/30/17 History levothyroxine 75 mcg tablet 75 mcg PO DAILY tab 10/23/17 12/30/17 History Aspirin [Aspir 81] 81 mg PO DAILY 10/29/17 12/30/17 History Ticagrelor [Brilinta 90mg Tablet] 90 mg PO BID 10/29/17 12/30/17 History Pantoprazole Sodium [Protonix 40mg 40 mg PO DAILY 12/03/17 12/30/17 History tablet] Umeclidinium Brm/Vilanterol Tr 1 puff IH DAILY 12/03/17 12/31/17 History [Anoro Ellipta 62.5-25 Mcg INH] Cetirizine HCl 10 mg PO DAILY 12/30/17 12/31/17 History Ipratropium [place] [Atrovent 2.5 ml IH BID 12/30/17 12/31/17 History 0.5mg/2.5mL neb] Sennosides/Docusate Sodium [Stool 240 mg PO BID 12/30/17 12/30/17 History Softener-Laxative Tablet] Albuterol Sulfate [Albuterol 3 ml IH BID 12/31/17 12/31/17 History 0.083% 2.5mg/3mL neb] Allergies Allergy/AdvReac Type Severity Reaction Status Date / Time loratadine [From CLARITIN] AdvReac Intermediate Drowsy Verified 12/03/17 07:23 Exam Vital signs and Labs for Last 24 Hours: Temp Pulse Resp BP Pulse Ox 97.0 F L 61 18 126/47 91 L 01/01/18 11:30 01/01/18 13:42 01/01/18 11:30 01/01/18 11:30 01/01/18 11:30 I & O for Last 24 hours: Intake & Output 12/29/17 12/30/17 12/31/17 01/01/18 23:59 23:59 23:59 23:59 Intake Total 999 / 999 480 / 480 Output Total 50 / 50 750 / 750 Balance 949 / 949 -270 / -270 Weight 60.498 kg 61.405 kg 62.397 kg Narrative: See above Internal Medicine - CN: Reslt - Labs CBC & Chem 7: 12/30/17 11:44 12/30/17 11:44 Assessment and Plan (1) Recurrent pneumonia Current visit: Yes Status: Acute Category: Medical Code(s): J18.9 - Pneumonia, unspecified organism (2) Acute exacerbation of chronic obstructive airways disease Current visit: No Status: Acute Category: Medical Code(s): J44.1 - Chronic obstructive pulmonary disease with (acute) exacerbation (3) Aspiration pneumonia Current visit: No Status: Acute Category: Medical Code(s): J69.0 - Pneumonitis due to inhalation of food and vomit (4) CAP (community acquired pneumonia) Current visit: No Status: Acute Qualifiers: Laterality: right Lung location: unspecified part of lung Qualified Code( s): J18.9 - Pneumonia, unspecified organism Category: Medical Code(s): J18.9 - Pneumonia, unspecified organism (5) COPD exacerbation Current visit: No Status: Acute Category: Medical Code(s): J44.1 - Chronic obstructive pulmonary disease with (acute) exacerbation (6) Chest pain Current visit: No Status: Acute Qualifiers: Chest pain type: other chest pain Qualified Code(s): R07.89 - Other chest pain; R07.8 - Other chest pain Category: Medical Code(s): R07.9 - Chest pain, unspecified (7) Hypoxia Current visit: No Status: Acute Category: Medical Code(s): R09.02 - Hypoxemia (8) Pneumonia Current visit: No Status: Acute Qualifiers: Pneumonia type: aspiration pneumonia Aspiration pneumonia type: unspecified Laterality: right Lung location: lower lobe of lung Qualified Code(s): J69.0 - Pneumonitis due to inhalation of food and vomit Category: Medical Code(s): J18.9 - Pneumonia, unspecified organism (9) Pneumonia of right lower lobe due to infectious organism Current visit: No Status: Acute Category: Medical Code(s): J18.1 - Lobar pneumonia, unspecified organism (10) Seizure disorder Current visit: No Status: Acute Category: Medical Code(s): G40.909 - Epilepsy, unspecified, not intractable, without status epilepticus (11) Unstable angina Current visit: No Status: Acute Category: Medical Code(s): I20.0 - Unstable angina (12) COPD (chronic obstructive pulmonary disease) Current visit: No Status: Chronic Category: Medical Code(s): J44.9 - Chronic obstructive pulmonary disease, unspecified (13) CVA (cerebral vascular accident) Current visit: No Status: Chronic Qualifiers: CVA mechanism: unspecified Qualified Code(s): I63.9 - Cerebral infarction, unspecified Category: Medical Code(s): I63.9 - Cerebral infarction, unspecified (14) Coronary artery disease Current visit: No Status: Chronic Qualifiers: Coronary Disease-Associated Artery/Lesion type: [place] artery [place] vs. transplanted heart: [place] heart Associated angina: angina presence unspecified Qualified Code(s): I25.10 - Atherosclerotic heart disease of [place] coronary artery without angina pectoris Category: Medical Code(s): I25.10 - Atherosclerotic heart disease of [place] coronary artery without angina pectoris (15) Diabetes mellitus type 2 in nonobese Current visit: No Status: Chronic Category: Medical Code(s): E11.9 - Type 2 diabetes mellitus without complications (16) HLD (hyperlipidemia) Current visit: No Status: Chronic Qualifiers: Hyperlipidemia type: other hyperlipidemia Qualified Code(s): E78.4 - Other hyperlipidemia Category: Medical Code(s): E78.5 - Hyperlipidemia, unspecified (17) HTN (hypertension) Current visit: No Status: Chronic Qualifiers: Hypertension type: essential hypertension Qualified Code(s): I10 - Essential (primary) hypertension Category: Medical Code(s): I10 - Essential (primary) hypertension (18) History of cancer of head or neck Current visit: No Status: Chronic Category: Medical Code(s): Z85.89 - Personal history of malignant neoplasm of other organs and systems (19) Mitral regurgitation Current visit: No Status: Chronic Qualifiers: Cardiac valve disease etiology: nonrheumatic Qualified Code(s): I34.0 - Nonrheumatic mitral (valve) insufficiency Category: Medical Code(s): I34.0 - Nonrheumatic mitral (valve) insufficiency (20) Pulmonary hypertension Current visit: No Status: Chronic Category: Medical Code(s): I27.20 - Pulmonary hypertension, unspecified (21) SOB (shortness of breath) Current visit: No Status: Chronic Category: Medical Code(s): R06.02 - Shortness of breath - Assessment and plan all Dx Assessment and Plan for all problems:: see above.
--- NOTE | 2018-01-02 06:45 | Progress Note ---
Internal Medicine - PN: Subj *Date: 01/02/18 *Time: 06:43 Interval history: Patient has no complaints. She slept well. She is starting to express some displeasure over the honey thickened liquids. She was seen by Dr. Magana yesterday and I have reviewed his note. CT scan was ordered which shows right lower, right middle, right upper lobe pneumonias consistent with aspiration. Exam Vital signs and Labs for Last 24 Hours: Temp Pulse Resp BP Pulse Ox 98.1 F 72 16 122/57 90 L 01/02/18 04:00 01/02/18 05:44 01/02/18 04:00 01/02/18 04:00 01/02/18 05:44 I & O for Last 24 hours: Intake & Output 12/30/17 12/31/17 01/01/18 01/02/18 11:59 11:59 11:59 11:59 Intake Total 0 / 0 1239 / 1239 1291 / 1291 Output Total 50 / 50 350 / 350 1300 / 1300 Balance -50 / -50 889 / 889 -9 / -9 Weight 135 lb 6 oz 137 lb 9 oz Narrative: Patient is in no distress. Lung sounds continue to improve with diminished sounds in the right base but today I do not hear any rhonchi in the right lung. Left lung is clear. Heart has a regular rate and rhythm. Assessment and Plan (1) Recurrent pneumonia Current visit: Yes Status: Acute Category: Medical Code(s): J18.9 - Pneumonia, unspecified organism (2) Acute exacerbation of chronic obstructive airways disease Current visit: No Status: Acute Category: Medical Code(s): J44.1 - Chronic obstructive pulmonary disease with (acute) exacerbation (3) Aspiration pneumonia Current visit: No Status: Acute Category: Medical Code(s): J69.0 - Pneumonitis due to inhalation of food and vomit (4) CAP (community acquired pneumonia) Current visit: No Status: Acute Qualifiers: Laterality: right Lung location: unspecified part of lung Qualified Code( s): J18.9 - Pneumonia, unspecified organism Category: Medical Code(s): J18.9 - Pneumonia, unspecified organism (5) COPD exacerbation Current visit: No Status: Acute Category: Medical Code(s): J44.1 - Chronic obstructive pulmonary disease with (acute) exacerbation (6) Chest pain Current visit: No Status: Acute Qualifiers: Chest pain type: other chest pain Qualified Code(s): R07.89 - Other chest pain; R07.8 - Other chest pain Category: Medical Code(s): R07.9 - Chest pain, unspecified (7) Hypoxia Current visit: No Status: Acute Category: Medical Code(s): R09.02 - Hypoxemia (8) Pneumonia Current visit: No Status: Acute Qualifiers: Pneumonia type: aspiration pneumonia Aspiration pneumonia type: unspecified Laterality: right Lung location: lower lobe of lung Qualified Code(s): J69.0 - Pneumonitis due to inhalation of food and vomit Category: Medical Code(s): J18.9 - Pneumonia, unspecified organism (9) Pneumonia of right lower lobe due to infectious organism Current visit: No Status: Acute Category: Medical Code(s): J18.1 - Lobar pneumonia, unspecified organism (10) Seizure disorder Current visit: No Status: Acute Category: Medical Code(s): G40.909 - Epilepsy, unspecified, not intractable, without status epilepticus (11) Unstable angina Current visit: No Status: Acute Category: Medical Code(s): I20.0 - Unstable angina (12) COPD (chronic obstructive pulmonary disease) Current visit: No Status: Chronic Category: Medical Code(s): J44.9 - Chronic obstructive pulmonary disease, unspecified (13) CVA (cerebral vascular accident) Current visit: No Status: Chronic Qualifiers: CVA mechanism: unspecified Qualified Code(s): I63.9 - Cerebral infarction, unspecified Category: Medical Code(s): I63.9 - Cerebral infarction, unspecified (14) Coronary artery disease Current visit: No Status: Chronic Qualifiers: Coronary Disease-Associated Artery/Lesion type: [place] artery [place] vs. transplanted heart: [place] heart Associated angina: angina presence unspecified Qualified Code(s): I25.10 - Atherosclerotic heart disease of [place] coronary artery without angina pectoris Category: Medical Code(s): I25.10 - Atherosclerotic heart disease of [place] coronary artery without angina pectoris (15) Diabetes mellitus type 2 in nonobese Current visit: No Status: Chronic Category: Medical Code(s): E11.9 - Type 2 diabetes mellitus without complications (16) HLD (hyperlipidemia) Current visit: No Status: Chronic Qualifiers: Hyperlipidemia type: other hyperlipidemia Qualified Code(s): E78.4 - Other hyperlipidemia Category: Medical Code(s): E78.5 - Hyperlipidemia, unspecified (17) HTN (hypertension) Current visit: No Status: Chronic Qualifiers: Hypertension type: essential hypertension Qualified Code(s): I10 - Essential (primary) hypertension Category: Medical Code(s): I10 - Essential (primary) hypertension (18) History of cancer of head or neck Current visit: No Status: Chronic Category: Medical Code(s): Z85.89 - Personal history of malignant neoplasm of other organs and systems (19) Mitral regurgitation Current visit: No Status: Chronic Qualifiers: Cardiac valve disease etiology: nonrheumatic Qualified Code(s): I34.0 - Nonrheumatic mitral (valve) insufficiency Category: Medical Code(s): I34.0 - Nonrheumatic mitral (valve) insufficiency (20) Pulmonary hypertension Current visit: No Status: Chronic Category: Medical Code(s): I27.20 - Pulmonary hypertension, unspecified (21) SOB (shortness of breath) Current visit: No Status: Chronic Category: Medical Code(s): R06.02 - Shortness of breath - Assessment and plan all Dx Assessment and Plan for all problems:: Patient is slowly improving and antibiotics have been switched to Unasyn per pulmonology recommendation. I did discuss with the family this morning that changes in the right lung are both chronic and acute in nature. Due to the patient's posture she has difficulty getting enough air into the right lung to inflated adequately which makes recovering from her pneumonia is difficult. Continue incentive spirometry.
--- NOTE | 2018-01-03 07:22 | Progress Note ---
Internal Medicine - PN: Subj *Date: 01/03/18 *Time: 07:19 Interval history: Patient has no complaints this morning. She has been ambulating. She continues to express displeasure at the honey thickened liquids and her is concerned this may be an issue once they return home. Exam Vital signs and Labs for Last 24 Hours: Temp Pulse Resp BP Pulse Ox 98.8 F 66 20 107/59 95 01/03/18 03:38 01/03/18 06:29 01/03/18 03:38 01/03/18 03:38 01/03/18 06:29 I & O for Last 24 hours: Intake & Output 12/31/17 01/01/18 01/02/18 01/03/18 11:59 11:59 11:59 11:59 Intake Total 0 / 0 1239 / 1239 1291 / 1291 900 / 900 Output Total 50 / 50 350 / 350 1300 / 1300 700 / 700 Balance -50 / -50 889 / 889 -9 / -9 200 / 200 Weight 135 lb 6 oz 137 lb 9 oz 136 lb 4 oz Narrative: She continues to sit in her recliner leaning to the right. Oropharynx is moist. Heart has a regular rate and rhythm. Lungs have diminished rhonchi compared to previous exams but poor airflow to the right lung base posteriorly and rales in the right upper lobe posteriorly Assessment and Plan (1) Recurrent pneumonia Current visit: Yes Status: Acute Category: Medical Code(s): J18.9 - Pneumonia, unspecified organism (2) Acute exacerbation of chronic obstructive airways disease Current visit: No Status: Acute Category: Medical Code(s): J44.1 - Chronic obstructive pulmonary disease with (acute) exacerbation (3) Aspiration pneumonia Current visit: No Status: Acute Category: Medical Code(s): J69.0 - Pneumonitis due to inhalation of food and vomit (4) CAP (community acquired pneumonia) Current visit: No Status: Acute Qualifiers: Laterality: right Lung location: unspecified part of lung Qualified Code( s): J18.9 - Pneumonia, unspecified organism Category: Medical Code(s): J18.9 - Pneumonia, unspecified organism (5) COPD exacerbation Current visit: No Status: Acute Category: Medical Code(s): J44.1 - Chronic obstructive pulmonary disease with (acute) exacerbation (6) Chest pain Current visit: No Status: Acute Qualifiers: Chest pain type: other chest pain Qualified Code(s): R07.89 - Other chest pain; R07.8 - Other chest pain Category: Medical Code(s): R07.9 - Chest pain, unspecified (7) Hypoxia Current visit: No Status: Acute Category: Medical Code(s): R09.02 - Hypoxemia (8) Pneumonia Current visit: No Status: Acute Qualifiers: Pneumonia type: aspiration pneumonia Aspiration pneumonia type: unspecified Laterality: right Lung location: lower lobe of lung Qualified Code(s): J69.0 - Pneumonitis due to inhalation of food and vomit Category: Medical Code(s): J18.9 - Pneumonia, unspecified organism (9) Pneumonia of right lower lobe due to infectious organism Current visit: No Status: Acute Category: Medical Code(s): J18.1 - Lobar pneumonia, unspecified organism (10) Seizure disorder Current visit: No Status: Acute Category: Medical Code(s): G40.909 - Epilepsy, unspecified, not intractable, without status epilepticus (11) Unstable angina Current visit: No Status: Acute Category: Medical Code(s): I20.0 - Unstable angina (12) COPD (chronic obstructive pulmonary disease) Current visit: No Status: Chronic Category: Medical Code(s): J44.9 - Chronic obstructive pulmonary disease, unspecified (13) CVA (cerebral vascular accident) Current visit: No Status: Chronic Qualifiers: CVA mechanism: unspecified Qualified Code(s): I63.9 - Cerebral infarction, unspecified Category: Medical Code(s): I63.9 - Cerebral infarction, unspecified (14) Coronary artery disease Current visit: No Status: Chronic Qualifiers: Coronary Disease-Associated Artery/Lesion type: [place] artery [place] vs. transplanted heart: [place] heart Associated angina: angina presence unspecified Qualified Code(s): I25.10 - Atherosclerotic heart disease of [place] coronary artery without angina pectoris Category: Medical Code(s): I25.10 - Atherosclerotic heart disease of [place] coronary artery without angina pectoris (15) Diabetes mellitus type 2 in nonobese Current visit: No Status: Chronic Category: Medical Code(s): E11.9 - Type 2 diabetes mellitus without complications (16) HLD (hyperlipidemia) Current visit: No Status: Chronic Qualifiers: Hyperlipidemia type: other hyperlipidemia Qualified Code(s): E78.4 - Other hyperlipidemia Category: Medical Code(s): E78.5 - Hyperlipidemia, unspecified (17) HTN (hypertension) Current visit: No Status: Chronic Qualifiers: Hypertension type: essential hypertension Qualified Code(s): I10 - Essential (primary) hypertension Category: Medical Code(s): I10 - Essential (primary) hypertension (18) History of cancer of head or neck Current visit: No Status: Chronic Category: Medical Code(s): Z85.89 - Personal history of malignant neoplasm of other organs and systems (19) Mitral regurgitation Current visit: No Status: Chronic Qualifiers: Cardiac valve disease etiology: nonrheumatic Qualified Code(s): I34.0 - Nonrheumatic mitral (valve) insufficiency Category: Medical Code(s): I34.0 - Nonrheumatic mitral (valve) insufficiency (20) Pulmonary hypertension Current visit: No Status: Chronic Category: Medical Code(s): I27.20 - Pulmonary hypertension, unspecified (21) SOB (shortness of breath) Current visit: No Status: Chronic Category: Medical Code(s): R06.02 - Shortness of breath - Assessment and plan all Dx Assessment and Plan for all problems:: Patient has pneumonia in the right upper, right middle, right lower lobe. Complete resolution is likely impossible due to patient's inability to take quality inspirations. Plan is to finish IV antibiotics and then discharged home on January 05. Patient will need home health at this
[2018-01-03 15:55] LABS: Folate >20.0 ng/mL (>3.0)
--- NOTE | 2018-01-04 07:24 | Progress Note ---
Internal Medicine - PN: Subj *Date: 01/04/18 *Time: 07:22 Interval history: Patient has no new complaints. She can is to have slight cough. She continues to tolerate honey thickened liquids. Exam Vital signs and Labs for Last 24 Hours: Temp Pulse Resp BP Pulse Ox 98.2 F 63 14 183/65 92 L 01/04/18 04:00 01/04/18 06:35 01/04/18 04:00 01/04/18 04:00 01/04/18 06:35 Laboratory Results - last 24 hr 01/01/18 15:05: Vitamin B12 553, Folate >20.0 I & O for Last 24 hours: Intake & Output 01/01/18 01/02/18 01/03/18 01/04/18 11:59 11:59 11:59 11:59 Intake Total 1239 / 1239 1291 / 1291 1380 / 1380 680 / 680 Output Total 350 / 350 1300 / 1300 700 / 700 Balance 889 / 889 -9 / -9 680 / 680 680 / 680 Weight 137 lb 9 oz 136 lb 4 oz 142 lb Narrative: Patient is awake and alert sitting up in the chair as has been her morning routine. Lung exam reveals rales heard anteriorly in the right lung both upper and lower lung. Left lung is clear. Assessment and Plan (1) Recurrent pneumonia Current visit: Yes Status: Acute Category: Medical Code(s): J18.9 - Pneumonia, unspecified organism (2) Acute exacerbation of chronic obstructive airways disease Current visit: No Status: Acute Category: Medical Code(s): J44.1 - Chronic obstructive pulmonary disease with (acute) exacerbation (3) Aspiration pneumonia Current visit: No Status: Acute Category: Medical Code(s): J69.0 - Pneumonitis due to inhalation of food and vomit (4) CAP (community acquired pneumonia) Current visit: No Status: Acute Qualifiers: Laterality: right Lung location: unspecified part of lung Qualified Code( s): J18.9 - Pneumonia, unspecified organism Category: Medical Code(s): J18.9 - Pneumonia, unspecified organism (5) COPD exacerbation Current visit: No Status: Acute Category: Medical Code(s): J44.1 - Chronic obstructive pulmonary disease with (acute) exacerbation (6) Chest pain Current visit: No Status: Acute Qualifiers: Chest pain type: other chest pain Qualified Code(s): R07.89 - Other chest pain; R07.8 - Other chest pain Category: Medical Code(s): R07.9 - Chest pain, unspecified (7) Hypoxia Current visit: No Status: Acute Category: Medical Code(s): R09.02 - Hypoxemia (8) Pneumonia Current visit: No Status: Acute Qualifiers: Pneumonia type: aspiration pneumonia Aspiration pneumonia type: unspecified Laterality: right Lung location: lower lobe of lung Qualified Code(s): J69.0 - Pneumonitis due to inhalation of food and vomit Category: Medical Code(s): J18.9 - Pneumonia, unspecified organism (9) Pneumonia of right lower lobe due to infectious organism Current visit: No Status: Acute Category: Medical Code(s): J18.1 - Lobar pneumonia, unspecified organism (10) Seizure disorder Current visit: No Status: Acute Category: Medical Code(s): G40.909 - Epilepsy, unspecified, not intractable, without status epilepticus (11) Unstable angina Current visit: No Status: Acute Category: Medical Code(s): I20.0 - Unstable angina (12) COPD (chronic obstructive pulmonary disease) Current visit: No Status: Chronic Category: Medical Code(s): J44.9 - Chronic obstructive pulmonary disease, unspecified (13) CVA (cerebral vascular accident) Current visit: No Status: Chronic Qualifiers: CVA mechanism: unspecified Qualified Code(s): I63.9 - Cerebral infarction, unspecified Category: Medical Code(s): I63.9 - Cerebral infarction, unspecified (14) Coronary artery disease Current visit: No Status: Chronic Qualifiers: Coronary Disease-Associated Artery/Lesion type: [place] artery [place] vs. transplanted heart: [place] heart Associated angina: angina presence unspecified Qualified Code(s): I25.10 - Atherosclerotic heart disease of [place] coronary artery without angina pectoris Category: Medical Code(s): I25.10 - Atherosclerotic heart disease of [place] coronary artery without angina pectoris (15) Diabetes mellitus type 2 in nonobese Current visit: No Status: Chronic Category: Medical Code(s): E11.9 - Type 2 diabetes mellitus without complications (16) HLD (hyperlipidemia) Current visit: No Status: Chronic Qualifiers: Hyperlipidemia type: other hyperlipidemia Qualified Code(s): E78.4 - Other hyperlipidemia Category: Medical Code(s): E78.5 - Hyperlipidemia, unspecified (17) HTN (hypertension) Current visit: No Status: Chronic Qualifiers: Hypertension type: essential hypertension Qualified Code(s): I10 - Essential (primary) hypertension Category: Medical Code(s): I10 - Essential (primary) hypertension (18) History of cancer of head or neck Current visit: No Status: Chronic Category: Medical Code(s): Z85.89 - Personal history of malignant neoplasm of other organs and systems (19) Mitral regurgitation Current visit: No Status: Chronic Qualifiers: Cardiac valve disease etiology: nonrheumatic Qualified Code(s): I34.0 - Nonrheumatic mitral (valve) insufficiency Category: Medical Code(s): I34.0 - Nonrheumatic mitral (valve) insufficiency (20) Pulmonary hypertension Current visit: No Status: Chronic Category: Medical Code(s): I27.20 - Pulmonary hypertension, unspecified (21) SOB (shortness of breath) Current visit: No Status: Chronic Category: Medical Code(s): R06.02 - Shortness of breath - Assessment and plan all Dx Assessment and Plan for all problems:: Patient will finish a one-week course of IV antibiotics tomorrow and anticipate discharge to home. Home health will be arranged for physical therapy, home safety, medication and vital signs monitoring. Patient is high risk for readmission
--- NOTE | 2018-01-05 07:43 | Discharge Summary ---
General - General Admission date: 12/30/17 Discharge date: 01/05/18 HPI HPI: Mrs. Harrington is an 82-year-old woman who has the significant past history of a meningioma in 2001. 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 I believe she had seizures at that time which were controlled with Keppra and she was also placed on gabapentin and morphine for chronic pain on the left side. She was able to walk with assistance and seemed to do fairly well over the years until this past year when she developed more breathlessness on exertion and was diagnosed with COPD. She never smoked cigarettes and, to her knowledge, she does not have COPD. She was given Anoro but is sure it helped. She had been on nocturnal oxygen for a while and has been on continuous oxygen this year. She had pneumonia in the right lower lobe in 2013 and perhaps other episodes not document by chest x-ray over the years. Since last summer, she has had pneumonia several times and in no and that she has a problem with deglutition. She has been advised how to chew and swallow her foods to use thickened liquids but I understand has not always follow directions. Because of the stroke, she tends to lean toward her right side and sleep on her right side at night, even when her head is elevated. She came in this time with a rather sudden onset of unresponsiveness and a profound drop in her oxygen saturation. She was discovered to have another pneumonia on the right side and was treated with antibiotics. She is much more alert now. She does have a cough which is productive but she swallows that material before bringing it up she has had no fever or chills here and no chest pain. She has chronic pain, likely neuropathic, on her left side. She has had no abdominal complaints. Her appetite is fair. She has coronary artery disease and had cardiac catheterization in September of this year where severe three-vessel disease was identified and she had stents placed in the right coronary artery. She currently has no anginal type chest pain. The family's history is a little vague in terms of the timeline of some of these events but they believe she had grand mal seizures sometime last year at which time Keppra was added to gabapentin. Past medical surgical history is significant for the meningioma, subsequent stroke and seizure disorder. She has also had a tubal ligation and hysterectomy. 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 She has diabetes, hypertension and history of a heart arrhythmia (I believe) as well as hypothyroidism. She has no medication allergies, she told me. Social history: She has a high school education and has been for 40 years to her current who was at her bedside. He has 5 children and "many, many grandchildren, great-grandchildren and great great grandchildren." Some are at the bedside. Review of systems: She currently has no headache or visual difficulty. She is edentulous. She has had no rash. She currently has no abdominal complaints and is not constipated. She has no nausea. She may have some arthritis in her hands but most of her pain has been in the left arm and leg. Apart from those symptoms mentioned here and in the present illness, the rest of a 14 point review of systems is negative. Family history: There is a family history of COPD in her father but he smoked. On physical examination, Mrs. Harrington is a very pleasant and alert, pale woman who is sitting in bed at a 45 angle, leaning toward her right side. She is articulate and her memory is fair. Vital signs: See below. HEENT: Sclerae clear; conjunctivae pink; EOMs full; external nares show no lesions; oropharynx is Mallampati III. She is edentulous. The left soft palate does not seem elevate Neck: No JVD; there is a woody feeling over the left neck extending to just below the left clavicle. There is a large scar there. I cannot feel the left carotid pulse but the right carotid is 2+ and there is a loud bruit. Chest: Asymmetry of expansion with less expansion on the left. There is dullness by percussion at the right base with decreased breath sounds there. There are inspiratory and expiratory low pitched wheezes at the right base and low pitched inspiratory crackles there as well. The rest of the lung yoder are clear. Heart: Regular rhythm; grade 1/6 systolic ejection murmur at the base. Abdomen: Bowel sounds are hyperactive; soft, nontender, no masses or organomegaly. Skin: No rash Extremities: No clubbing or edema Neurological: She has a mildly reduced gag reflex. I put a gloved finger down her throat. She has left-sided hemiparesis with poor javascript application developer on the left. The right also has a weak javascript application developer. There is aspect knife rigidity of the left arm. I did not get her out of bed but she can apparently walk with assistance. I reviewed all of her x-rays including a chest x-ray from 2013 when she also presented with a similar appearing infiltrate on the right. I reviewed CT scan as well. She does have emphysema despite not smoking ever. I reviewed her recent laboratory data. Her MCV has been high in the past and it is currently. Assessment and plan: Mrs. Harrington has had recurrent pneumonias and they all appear to occur on the right side and are, as you know, likely related to aspiration. They have been counseled by the speech pathologist and you about the importance of chewing and swallowing food carefully and using those measures that she has been taught to avoid aspiration. She is 82 and limited in her mobility and so her care is palliative. She obviously needs oxygen currently for acute respiratory failure. Her blood cultures are negative and no sputum culture was obtained. I would recommend de-escalating antibiotics because of the potential for toxicity of the ones that she is on. I would recommend using Unasyn. She does not believe she is allergic to penicillin. The last chest x-ray shows very dense consolidation or effusion on the right and I recommended a CT scan to determine whether or not there is collapse of the lung a large parapneumonic effusion. She has had an elevated MCV for some time and I recommended a B12 and folate level. The changes in her level of consciousness may be related to recurrent aspiration and hypoxemia but her family recalls that Keppra caused sedation years ago and I wonder whether or not the combination of Keppra and gabapentin contribute to this. It does seem unlikely to me since she is on both now and is quite alert. I would be happy to follow-up with her as an outpatient. Hospital Course Hospital Course: Patient was admitted and placed on vancomycin and clindamycin to cover aspiration pneumonia. Splinted well to antibiotics. Pulmonology was consulted and recommended change of antibiotics to Unasyn which was done. CT scan was ordered which showed right upper, right middle, right lower lobe pneumonia. In addition to Unasyn it was recommended that palliation be if us. Patient's lung exam improved throughout the week. Speech evaluation was performed and honey thickened liquids were recommended to prevent aspiration. Patient tolerated honey thickened liquids okay. Once her lung exam improved, she completed a seven-day course of antibiotics she was discharged home. Patient will follow- up in my office on of this coming week. She is high risk for readmission. Home health has been arranged for home safety, vital sign monitoring, medication monitoring, physical therapy Objective Vital signs: Temp Pulse Resp BP Pulse Ox 98.8 F 65 18 138/95 92 L 01/05/18 03:19 01/05/18 06:13 01/05/18 03:19 01/05/18 03:19 01/05/18 06:13 DS: Diagnosis - Discharge Diagnosis (1) Recurrent pneumonia Status: Acute (2) Acute exacerbation of chronic obstructive airways disease Status: Acute (3) Aspiration pneumonia Status: Acute (4) CAP (community acquired pneumonia) Status: Acute (5) COPD exacerbation Status: Acute (6) Chest pain Status: Acute (7) Hypoxia Status: Acute (8) Pneumonia Status: Acute (9) Pneumonia of right lower lobe due to infectious organism Status: Acute (10) Seizure disorder Status: Acute (11) Unstable angina Status: Acute (12) COPD (chronic obstructive pulmonary disease) Status: Chronic (13) CVA (cerebral vascular accident) Status: Chronic (14) Coronary artery disease Status: Chronic (15) Diabetes mellitus type 2 in nonobese Status: Chronic (16) HLD (hyperlipidemia) Status: Chronic (17) HTN (hypertension) Status: Chronic (18) History of cancer of head or neck Status: Chronic (19) Mitral regurgitation Status: Chronic (20) Pulmonary hypertension Status: Chronic (21) SOB (shortness of breath) Status: Chronic Discharge Plan - Patient Discharge Instructions ACTIVITY: Continue current activity DIET: continue same diet - Follow up Plan Follow up with: Damien Bird MD [Primary Care Provider] - Disposition: Home, Self-Skilled Nursing Medications: Home Medications Medication Instructions Recorded Confirmed Type ALPRAZolam [Xanax 1mg tab] 1 mg PO TIDP PRN 10/16/17 12/30/17 History Gabapentin [Gabapentin 300mg Cap] 300 mg PO TID 10/16/17 12/30/17 History Metformin HCl [Metformin 500mg 500 mg PO BID 10/16/17 12/30/17 History Tablet] Metoprolol Tartrate [Lopressor 25 mg PO BID 10/16/17 12/30/17 History 25mg tablet] Morphine Sulfate [Morphine Sulfate 30 mg PO HS 10/16/17 12/30/17 History ER 30mg Cap] Ropinirole HCl 1 mg PO HS 10/16/17 12/30/17 History levETIRAcetam [Levetiracetam] 500 mg PO BID 10/16/17 12/30/17 History levothyroxine 75 mcg tablet 75 mcg PO DAILY tab 10/23/17 12/30/17 History Aspirin [Aspir 81] 81 mg PO DAILY 10/29/17 12/30/17 History Ticagrelor [Brilinta 90mg Tablet] 90 mg PO BID 10/29/17 12/30/17 History Pantoprazole Sodium [Protonix 40mg 40 mg PO DAILY 12/03/17 12/30/17 History tablet] Umeclidinium Brm/Vilanterol Tr 1 puff IH DAILY 12/03/17 12/31/17 History [Anoro Ellipta 62.5-25 Mcg INH] Cetirizine HCl 10 mg PO DAILY 12/30/17 12/31/17 History Ipratropium [place] [Atrovent 2.5 ml IH BID 12/30/17 12/31/17 History 0.5mg/2.5mL neb] Sennosides/Docusate Sodium [Stool 240 mg PO BID 12/30/17 12/30/17 History Softener-Laxative Tablet] Albuterol Sulfate [Albuterol 3 ml IH BID 12/31/17 12/31/17 History 0.083% 2.5mg/3mL neb] Prescriptions/Medication Reconciliation: Continue levothyroxine 75 mcg tablet 75 mcg PO DAILY tab Ropinirole HCl 1 mg PO HS Morphine Sulfate [Morphine Sulfate ER 30mg Cap] 30 mg PO HS Metoprolol Tartrate [Lopressor 25mg tablet] 25 mg PO BID Metformin HCl [Metformin 500mg Tablet] 500 mg PO BID levETIRAcetam [Levetiracetam] 500 mg PO BID Gabapentin [Gabapentin 300mg Cap] 300 mg PO TID ALPRAZolam [Xanax 1mg tab] 1 mg PO TIDP PRN PRN Reason: Anxiety Aspirin [Aspir 81] 81 mg PO DAILY Ticagrelor [Brilinta 90mg Tablet] 90 mg PO BID Umeclidinium Brm/Vilanterol Tr [Anoro Ellipta 62.5-25 Mcg INH] 1 puff IH DAILY Pantoprazole Sodium [Protonix 40mg tablet] 40 mg PO DAILY Sennosides/Docusate Sodium [Stool Softener-Laxative Tablet] 240 mg PO BID Cetirizine HCl 10 mg PO DAILY Ipratropium [place] [Atrovent 0.5mg/2.5mL neb] 2.5 ml IH BID Albuterol Sulfate [Albuterol 0.083% 2.5mg/3mL neb] 3 ml IH BID
[2018-01-05 07:47] VITALS: BP 125/50
== END 2018-01-05 10:45 | disposition home health service (06) ==
LOC: 2ND 10:50 → ER 10:50 → OBSVTOIN 14:46 → 2ND 14:47
PROVIDERS: ADMIT Internal Medicine Adolescent Medicine; ATTEND Family Medicine

== ENCOUNTER 2019-07-17 10:24 | Inpatient (IN) ==
--- NOTE | 2019-07-17 11:34 | History & Physical Report ---
*Admission Date: 07/17/19 *Chief complaint: fever,cough, dyspnea *History of present illness: 84 year old female w/COPD, DM, HTN, CAD presented to office for reevaluation of pneumonia. Thierry had been seen in office 07/16 with fever, cough, and diagnosed with pneumonia. Patient returned to office on 07/17 with worsening dyspnea and has been admitted to [facility] for inpatient treatment. Oxygen sats in office were 88% at rest with supplemental oxygen use. [facility] History I have reviewed the patient's past medical history: Yes Medical History: Reports:: Anxiety, Atrial Fibrillation, Cancer, Congestive Heart Failure, Chronic Obstructive Pulmonary Disease (COPD), Coronary Artery Disease, Cerebrovascular Accident, Diabetes Mellitus Type 2, Hyperlipidemia, Hypertension, Myocardial Infarction, Seizures Denies:: Diabetes Mellitus Type 1, MRSA *Have you ever received a pneumonia vaccine?: No *Have you received a flu vaccine this season?: Yes Other Medical History: Reports: Hypothyroidism Laterality Cases: Bilateral: Tonsillectomy Other Surgeries: Yes: Cardiac Catheterization, Hysterectomy-Total, Other (LHC- stents) Amputation: No Fractures: No - *Social History Smoking Status: Never smoker Alcohol Intake: never Alcohol Intake Frequency:: other Substance Use Type: denies use *Occupational Status:: disabled Housing: house Household Members: spouse, family *Travel in the last 8 weeks: None - Psychiatric History Pschychiatric History:: Reports:: Anxiety Family Hx:: No significant family history Review of Systems - Constitutional Reports body ache(s), Reports fatigue, Reports fever(s), Reports lack of energy, Denies chills - *Cardiovascular Reports chest pain - *Respiratory Reports chest congestion, Reports cough, Reports shortness of breath, Reports wheezing - *Gastrointestinal Denies abdominal pain Meds Home Medications Medication Instructions Recorded Confirmed Type ALPRAZolam [Xanax 1mg tab] 1 mg PO TIDP PRN 10/16/17 12/30/17 History Gabapentin [Gabapentin 300mg Cap] 300 mg PO TID 10/16/17 12/30/17 History Metformin HCl [Glucophage 500mg 500 mg PO BID 10/16/17 12/30/17 History Tablet] Metoprolol Tartrate [Lopressor 25 mg PO BID 10/16/17 12/30/17 History 25mg tablet] Morphine Sulfate [Morphine Sulfate 30 mg PO HS 10/16/17 12/30/17 History ER 30mg Cap] Ropinirole HCl 1 mg PO HS 10/16/17 12/30/17 History levETIRAcetam [Levetiracetam] 500 mg PO BID 10/16/17 12/30/17 History levothyroxine 75 mcg tablet 75 mcg PO DAILY tab 10/23/17 12/30/17 History Aspirin [Aspir 81] 81 mg PO DAILY 10/29/17 12/30/17 History Ticagrelor [Brilinta 90mg Tablet] 90 mg PO BID 10/29/17 12/30/17 History Pantoprazole Sodium [Protonix 40mg 40 mg PO DAILY 12/03/17 12/30/17 History tablet] Umeclidinium Brm/Vilanterol Tr 1 puff IH DAILY 12/03/17 12/31/17 History [Anoro Ellipta 62.5-25 Mcg INH] Cetirizine HCl 10 mg PO DAILY 12/30/17 12/31/17 History Ipratropium [place] [Atrovent 2.5 ml IH BID 12/30/17 12/31/17 History 0.5mg/2.5mL neb] Sennosides/Docusate Sodium [Stool 240 mg PO BID 12/30/17 12/30/17 History Softener-Laxative Tablet] Albuterol Sulfate [Albuterol 3 ml IH BID 12/31/17 12/31/17 History 0.083% 2.5mg/3mL neb] Allergies Allergy/AdvReac Type Severity Reaction Status Date / Time loratadine [From CLARITIN] AdvReac Intermediate Drowsy Verified 12/03/17 07:23 Exam Vital signs and Labs for Last 24 Hours: Temp Pulse Resp BP Pulse Ox 99.5 F 69 19 123/50 L 89 L 07/17/19 11:06 07/17/19 11:06 07/17/19 11:06 07/17/19 11:06 07/17/19 11:06 I & O for Last 24 hours: Intake & Output 07/14/19 07/15/19 07/16/19 07/17/19 11:59 11:59 11:59 11:59 Weight 154 lb 9 oz - Constitutional no acute distress - *Routine HEENT Exam Head: Present: normocephalic Eye: Present: PERRL ENT: Present: mucous membranes moist - *Routine Respiratory Exam Present: rales (bilaterally), rhonchi (bilaterally), wheezes - *Routine Cardiovascular Exam Present: RRR, Normal S1, Normal S2 - *Routine Abdominal Exam Present: soft, normoactive bowel sounds. Absent: tenderness - *Routine Extremities Exam Comments: right arm and leg hemiparesis Assessment and Plan (1) Pneumonia Current visit: No Status: Acute Qualifiers: Pneumonia type: aspiration pneumonia Aspiration pneumonia type: unspecified Laterality: right Lung location: lower lobe of lung Qualified Code(s): J69.0 - Pneumonitis due to inhalation of food and vomit Category: Medical Code(s): J18.9 - Pneumonia, unspecified organism (2) BMI 28.0-28.9,adult Current visit: Yes Status: Acute Category: Medical Code(s): Z68.28 - Body mass index (BMI) 28.0-28.9, adult (3) COPD exacerbation Current visit: No Status: Acute Category: Medical Code(s): J44.1 - Chronic obstructive pulmonary disease with (acute) exacerbation (4) Coronary artery disease Current visit: No Status: Chronic Qualifiers: Coronary Disease-Associated Artery/Lesion type: [place] artery [place] vs. transplanted heart: [place] heart Associated angina: angina presence unspecified Qualified Code(s): I25.10 - Atherosclerotic heart disease of [place] coronary artery without angina pectoris Category: Medical Code(s): I25.10 - Atherosclerotic heart disease of [place] coronary artery without angina pectoris (5) Diabetes mellitus type 2 in nonobese Current visit: No Status: Chronic Category: Medical Code(s): E11.9 - Type 2 diabetes mellitus without complications (6) HTN (hypertension) Current visit: No Status: Chronic Qualifiers: Hypertension type: essential hypertension Qualified Code(s): I10 - Essential (primary) hypertension Category: Medical Code(s): I10 - Essential (primary) hypertension (7) History of cancer of head or neck Current visit: No Status: Chronic Category: Medical Code(s): Z85.89 - Personal history of malignant neoplasm of other organs and systems (8) Pulmonary hypertension Current visit: No Status: Chronic Category: Medical Code(s): I27.20 - Pulmonary hypertension, unspecified - Assessment and plan all Dx Assessment and Plan for all problems:: 1. admit for IV antibiotics, increase pulmonary toilet w/incentive spirometer. Keep sats >90. 2. Blood/sputum cx 3. Home meds
[2019-07-17 12:01] LABS: ABG Base Excess 6.7 mmol/L (-2.4-2.3); ABG HCO3 31.8 mmhg (22.0-26.0); ABG Oxygen Saturation 93 % (90-100); ABG PH 7.38 mmol/L (7.35-7.45); ABG TCO2 33.5 mmhg (23-27)
[2019-07-17 12:03] LABS: Oxygen 2.5 LPM %
[2019-07-17 12:04] LABS: ABG PCO2 54.8 mmhg (35.0-45.0)
[2019-07-17 13:24] LABS: Basophils # 0.1 K/mm3 (0-0.2); Basophils % 0.8 % (0.1-2.0); Eosinophils % 0.1 % (0.1-12.0); Hematocrit 44.2 % (37.0-47.0); Hemoglobin 12.9 g/dL (12.2-16.2); Lymphocytes # 0.8 K/mm3 (0.7-4.5); Lymphocytes % 14.1 % (10-50); Mean Corpuscular HGB Conc 29.1 g/dL (31.8-35.4); Mean Corpuscular Volume 106.8 fl (81-99); Mean Platelet Volume 8.8 fl (7.4-10.4); Monocytes # 0.5 K/mm3 (0.1-1.0); Monocytes % 8.1 % (1.7-9.3); Neutrophils # 4.4 K/mm3 (1.8-7.8); Neutrophils % 76.9 % (37.0-80.0); Platelet Count 178 K/mm3 (142-424); Red Blood Count 4.14 M/mm3 (4.20-5.40); White Blood Count 5.8 K/mm3 (4.8-10.8)
[2019-07-17 13:27] LABS: Anion Gap 10.9 mEq/L (5-15); Calcium 8.2 mg/dL (8.5-10.1)
--- NOTE | 2019-07-17 13:33 | Pharmacy Consult Notes ---
[facility] Pharmacy VTE Monitoring - Patient Demographics Admission date: 07/17/19 Report Date: 07/17/19 Time: 13:32 Allergies/Adverse Reactions: Patient Allergies loratadine [From CLARITIN] Adverse Reaction (Intermediate, Verified 12/03/17 07:23) Drowsy Height: 1.57 m Weight: 70.108 kg Patient Problems: Current Active Problems BMI 28.0-28.9,adult (Acute) - VTE Risk Labs: VTE Related Lab Results Hgb 12.9 g/dL (12.2-16.2) 07/17/19 13:00 Hct 44.2 % (37.0-47.0) 07/17/19 13:00 Plt Count 178 K/mm3 (142-424) 07/17/19 13:00 VTE Score: 3 VTE Risk Level: Low Risk - Prophylaxis VTE Prophylaxis Ordered?: Yes Types of VTE Prophylaxis: TEDS Knee High Location of Applied Device: Bilateral Lower Extremeties
--- NOTE | 2019-07-18 07:25 | Progress Note ---
Internal Medicine - PN: Subj *Date: 07/18/19 *Time: 07:24 Interval history: Patient denies shortness of breath this morning. She continues to have cough with a loose rattle in her chest and no sputum production. Exam Vital signs and Labs for Last 24 Hours: Temp Pulse Resp BP Pulse Ox 99.0 F 75 18 133/64 95 07/18/19 03:59 07/18/19 06:15 07/18/19 03:59 07/18/19 03:59 07/18/19 03:59 Laboratory Results - last 24 hr 07/17/19 10:58: Specimen Source R brachial, O2 % 2.5 lpm, ABG pH 7.38, ABG pCO2 54.8 H, ABG pO2 70.0 L, ABG HCO3 31.8 H, ABG Total CO2 33.5 H, ABG O2 Saturation 93, ABG Base Excess 6.7 H 07/17/19 13:00: WBC 5.8, RBC 4.14 L, Hgb 12.9, Hct 44.2, MCV 106.8 H, MCH 31.1, MCHC 29.1 L, RDW 15.0, Plt Count 178, MPV 8.8, Neut % (Auto) 76.9, Lymph % (Auto) 14.1, [place] % (Auto) 8.1, Eos % (Auto) 0.1, Baso % (Auto) 0.8, Neut # (Auto) 4.4, Lymph # (Auto) 0.8, [place] # (Auto) 0.5, Eos # (Auto) 0.0, Baso # (Auto) 0.1 07/17/19 13:00: Sodium 144, Potassium 3.9, Chloride 106, Carbon Dioxide 31, Anion Gap 10.9, BUN 20 H, Creatinine 0.88, Estimated Creat Clear 45, Estimated GFR 61, Est GFR ( Amer) 74, Glucose 171 H, Calcium 8.2 L 07/17/19 13:00: Mycoplasma pneumon IgM Non-reactive I & O for Last 24 hours: Intake & Output 07/15/19 07/16/19 07/17/19 07/18/19 11:59 11:59 11:59 11:59 Output Total 790 / 790 Balance -790 / -790 Weight 154 lb 9 oz 146 lb 6 oz Narrative: Patient is in no distress. Lung exam reveals improvement in the left anterior rhonchi but persistent rales with improved aeration in the right lung base. Heart has a regular rate and rhythm Assessment and Plan (1) Pneumonia Current visit: No Status: Acute Qualifiers: Pneumonia type: aspiration pneumonia Aspiration pneumonia type: unspecified Laterality: right Lung location: lower lobe of lung Qualified Code(s): J69.0 - Pneumonitis due to inhalation of food and vomit Category: Medical Code(s): J18.9 - Pneumonia, unspecified organism (2) BMI 28.0-28.9,adult Current visit: Yes Status: Acute Category: Medical Code(s): Z68.28 - Body mass index (BMI) 28.0-28.9, adult (3) COPD exacerbation Current visit: No Status: Acute Category: Medical Code(s): J44.1 - Chronic obstructive pulmonary disease with (acute) exacerbation (4) Coronary artery disease Current visit: No Status: Chronic Qualifiers: Coronary Disease-Associated Artery/Lesion type: [place] artery [place] vs. transplanted heart: [place] heart Associated angina: angina presence unspecified Qualified Code(s): I25.10 - Atherosclerotic heart disease of [place] coronary artery without angina pectoris Category: Medical Code(s): I25.10 - Atherosclerotic heart disease of [place] coronary artery without angina pectoris (5) Diabetes mellitus type 2 in nonobese Current visit: No Status: Chronic Category: Medical Code(s): E11.9 - Type 2 diabetes mellitus without complications (6) HTN (hypertension) Current visit: No Status: Chronic Qualifiers: Hypertension type: essential hypertension Qualified Code(s): I10 - Essential (primary) hypertension Category: Medical Code(s): I10 - Essential (primary) hypertension (7) History of cancer of head or neck Current visit: No Status: Chronic Category: Medical Code(s): Z85.89 - Personal history of malignant neoplasm of other organs and systems (8) Pulmonary hypertension Current visit: No Status: Chronic Category: Medical Code(s): I27.20 - Pulmonary hypertension, unspecified - Assessment and plan all Dx Assessment and Plan for all problems:: No change in plan of care. Encourage patient to use incentive spirometer. Continue IV antibiotics
--- NOTE | 2019-07-19 08:16 | Progress Note ---
Internal Medicine - PN: Subj *Date: 07/19/19 *Time: 08:14 Interval history: Patient has no complaints this morning. She denies shortness of breath and states she is feeling better. Her cough is remained nonproductive. She had a low-grade temp to 100 degrees yesterday morning and has remained afebrile since Exam Vital signs and Labs for Last 24 Hours: Temp Pulse Resp BP Pulse Ox 98.4 F 76 18 144/51 H 92 L 07/19/19 07:33 07/19/19 07:33 07/19/19 07:33 07/19/19 07:33 07/19/19 07:33 I & O for Last 24 hours: Intake & Output 07/16/19 07/17/19 07/18/19 07/19/19 11:59 11:59 11:59 11:59 Intake Total 240 / 240 600 / 600 Output Total 1090 / 1090 500 / 500 Balance -850 / -850 100 / 100 Weight 154 lb 9 oz 146 lb 6.015 oz 145 lb 5 oz Narrative: Lung exam today reveals diffuse expiratory wheezes with rales at the right lung base. Heart has a regular rate and rhythm Assessment and Plan (1) Pneumonia Current visit: No Status: Acute Qualifiers: Pneumonia type: aspiration pneumonia Aspiration pneumonia type: unspecified Laterality: right Lung location: lower lobe of lung Qualified Code(s): J69.0 - Pneumonitis due to inhalation of food and vomit Category: Medical Code(s): J18.9 - Pneumonia, unspecified organism (2) BMI 28.0-28.9,adult Current visit: Yes Status: Acute Category: Medical Code(s): Z68.28 - Body mass index (BMI) 28.0-28.9, adult (3) COPD exacerbation Current visit: No Status: Acute Category: Medical Code(s): J44.1 - Chronic obstructive pulmonary disease with (acute) exacerbation (4) Coronary artery disease Current visit: No Status: Chronic Qualifiers: Coronary Disease-Associated Artery/Lesion type: [place] artery [place] vs. transplanted heart: [place] heart Associated angina: angina presence unspecified Qualified Code(s): I25.10 - Atherosclerotic heart disease of [place] coronary artery without angina pectoris Category: Medical Code(s): I25.10 - Atherosclerotic heart disease of [place] coronary artery without angina pectoris (5) Diabetes mellitus type 2 in nonobese Current visit: No Status: Chronic Category: Medical Code(s): E11.9 - Type 2 diabetes mellitus without complications (6) HTN (hypertension) Current visit: No Status: Chronic Qualifiers: Hypertension type: essential hypertension Qualified Code(s): I10 - Essential (primary) hypertension Category: Medical Code(s): I10 - Essential (primary) hypertension (7) History of cancer of head or neck Current visit: No Status: Chronic Category: Medical Code(s): Z85.89 - Personal history of malignant neoplasm of other organs and systems (8) Pulmonary hypertension Current visit: No Status: Chronic Category: Medical Code(s): I27.20 - Pulmonary hypertension, unspecified - Assessment and plan all Dx Assessment and Plan for all problems:: Continue current care. Patient is improving. For the wheezing I will add on some oral prednisone today. At current rate as long as she remains afebrile I would anticipate discharge to home tomorrow
--- NOTE | 2019-07-20 07:29 | Discharge Summary ---
General - General Admission date:: 07/17/19 Discharge date: 07/20/19 HPI HPI: 84 year old female w/COPD, DM, HTN, CAD presented to office for reevaluation of pneumonia. Thierry had been seen in office 07/16 with fever, cough, and diagnosed with pneumonia. Patient returned to office on 07/17 with worsening dyspnea and has been admitted to [facility] for inpatient treatment. Oxygen sats in office were 88% at rest with supplemental oxygen use. Hospital Course Hospital Course: Patient was admitted and placed on IV Levaquin. CBC showed a normal white count. BMP revealed normal electrolytes and blood sugar. Chest x-ray confirmed presence of right lower lobe pneumonia. Patient's lung exam was also consistent with a COPD exacerbation with diffuse rhonchi in the left lung as well. Patient was started on duo nebs 4 times daily in addition to the antibiotics. Within 24 hours rhonchi on the left lung improved in aeration to the right lung base improved. Patient continued on this course. On July 19 she developed wheezing and was started on low-dose oral prednisone. By the following day on July 20 wheezing had improved as well. Patient's documented room air sat was 80%. She remained on supplemental oxygen throughout hospitalization. Oxygen flow rate was 1-1/2 to 2 L/min which kept her sats greater than 88%. She use incentive spirometer every hour while awake. Patient has a history of aspi ration and on bedside swallowing evaluation by nursing staff no abnormalities were detected. Patient did not have any aspirating episodes while hospitalized. On the patient was appropriate for discharge and was discharged home on Levaquin and prednisone and will follow-up in the office on Sunday. She will continue breathing treatments at home 3 times daily. No change in her home medications Objective Vital signs: Temp Pulse Resp BP Pulse Ox 98.2 F 69 20 160/68 H 90 L 07/20/19 04:00 07/20/19 06:28 07/20/19 04:00 07/20/19 05:00 07/20/19 06:28 - *Routine Respiratory Exam Comments: Faint expiratory wheeze in the right lung base with associated rales - *Routine Cardiovascular Exam Present: RRR, Normal S1, Normal S2 Results Labs on day of discharge: Preliminary micro results at discharge 07/17/19 13:00 Blood Culture - Preliminary Blood NO GROWTH AFTER 48 HOURS 07/17/19 13:00 Blood Culture - Preliminary Blood NO GROWTH AFTER 48 HOURS DS: Diagnosis - Discharge Diagnosis (1) Pneumonia Status: Acute (2) BMI 28.0-28.9,adult Status: Acute (3) COPD exacerbation Status: Acute (4) Coronary artery disease Status: Chronic (5) Diabetes mellitus type 2 in nonobese Status: Chronic (6) HTN (hypertension) Status: Chronic (7) History of cancer of head or neck Status: Chronic (8) Pulmonary hypertension Status: Chronic Discharge Plan - Patient Discharge Instructions ACTIVITY: Continue current activity DIET: continue same diet Patient Instructions: DI for Pneumonia -- Adult, DI for Diabetes Type 2 - Follow up Plan Follow up with: Damien Bird MD [Primary Care Provider] - 07/25/19 Disposition: Home, Self-Jail Medications: Home Medications Medication Instructions Recorded Confirmed Type ALPRAZolam [Xanax 1mg tab] 1 mg PO TIDP PRN 10/16/17 07/17/19 History Gabapentin [Gabapentin 300mg Cap] 300 mg PO TID 10/16/17 07/17/19 History Metoprolol Tartrate [Lopressor 25 mg PO BID 10/16/17 07/17/19 History 25mg tablet] Morphine Sulfate [Morphine Sulfate 30 mg PO HS 10/16/17 07/17/19 History ER 30mg Cap] Ropinirole HCl 1 mg PO HS 10/16/17 07/17/19 History levothyroxine 75 mcg tablet 75 mcg PO DAILY tab 10/23/17 07/17/19 History Aspirin [Aspir 81] 81 mg PO DAILY 10/29/17 07/17/19 History Ticagrelor [Brilinta 90mg Tablet] 90 mg PO BID 10/29/17 07/17/19 History Cetirizine HCl 10 mg PO DAILY 12/30/17 07/17/19 History Sennosides/Docusate Sodium [Stool 240 mg PO BID 12/30/17 07/17/19 History Softener-Laxative Tablet] Albuterol Sulfate [Albuterol 3 ml IH TID 12/31/17 07/17/19 History 0.083% 2.5mg/3mL neb] Baclofen [Lioresal 10mg tablet] 10 mg PO HS 07/17/19 07/17/19 History Docusate Calcium 240 mg PO BID 07/17/19 07/17/19 History Omeprazole [Omeprazole 20mg 20 mg PO DAILY 07/17/19 07/17/19 History Capsule] cephALEXin [cephALEXin 500mg 500 mg PO BID 07/17/19 07/17/19 History capsule*] levoFLOXacin [Levaquin 750mg 750 mg PO DAILY #7 tab 07/20/19 Rx tablet] predniSONE [Deltasone 20mg 20 mg PO DAILY #7 tab 07/20/19 Rx tablet] Prescriptions/Medication Reconciliation: New predniSONE [Deltasone 20mg tablet] 20 mg PO DAILY #7 tab levoFLOXacin [Levaquin 750mg tablet] 750 mg PO DAILY #7 tab Continued levothyroxine 75 mcg tablet 75 mcg PO DAILY tab Ropinirole HCl 1 mg PO HS Morphine Sulfate [Morphine Sulfate ER 30mg Cap] 30 mg PO HS Metoprolol Tartrate [Lopressor 25mg tablet] 25 mg PO BID Gabapentin [Gabapentin 300mg Cap] 300 mg PO TID ALPRAZolam [Xanax 1mg tab] 1 mg PO TIDP PRN PRN Reason: Anxiety Aspirin [Aspir 81] 81 mg PO DAILY Ticagrelor [Brilinta 90mg Tablet] 90 mg PO BID Sennosides/Docusate Sodium [Stool Softener-Laxative Tablet] 240 mg PO BID Cetirizine HCl 10 mg PO DAILY Baclofen [Lioresal 10mg tablet] 10 mg PO HS Albuterol Sulfate [Albuterol 0.083% 2.5mg/3mL neb] 3 ml IH TID Omeprazole [Omeprazole 20mg Capsule] 20 mg PO DAILY Docusate Calcium 240 mg PO BID Discontinued cephALEXin [cephALEXin 500mg capsule*] 500 mg PO BID - Problem Reconciliation Problems Reviewed?: Yes
== END 2019-07-20 09:30 | disposition home or self-care (01) | DRG 178 ==
LOC: 2ND → OBSVTOIN 10:24
PROVIDERS: ADMIT Family Medicine; ATTEND Family Medicine
CPT/HCPCS: 71010; 71045; 80048; 82803; 85025; 86738; 87040; 94640; 94761; J1956

== ENCOUNTER 2019-11-16 22:49 | Inpatient (IN) ==
[2019-11-16 23:19] LABS: ABG Base Excess 0.8 mmol/L (-2.4-2.3); ABG HCO3 27.8 mmhg (22.0-26.0); ABG Oxygen Saturation 91 % (90-100); ABG PH 7.27 mmol/L (7.35-7.45); ABG PO2 68.3 mmhg (80-100); ABG TCO2 29.7 mmhg (23-27); Allen's Test Y; Oxygen 100 %
[2019-11-16 23:20] LABS: ABG PCO2 62.3 mmhg (35.0-45.0)
[2019-11-16 23:26] LABS: Basophils % 0.2 % (0.1-2.0); Eosinophils % 0.2 % (0.1-12.0); Hematocrit 43.3 % (37.0-47.0); Hemoglobin 12.9 g/dL (12.2-16.2); Lymphocytes # 1.5 K/mm3 (0.7-4.5); Lymphocytes % 6.7 % (10-50); Mean Corpuscular HGB Conc 29.7 g/dL (31.8-35.4); Mean Corpuscular Volume 101.9 fl (81-99); Mean Platelet Volume 8.4 fl (7.4-10.4); Monocytes % 4.5 % (1.7-9.3); Neutrophils # 19.6 K/mm3 (1.8-7.8); Neutrophils % 88.4 % (37.0-80.0); Platelet Count 222 K/mm3 (142-424); Red Blood Count 4.25 M/mm3 (4.20-5.40); Red Cell Distribution Width 15.1 % (11.5-17.5)
--- NOTE | 2019-11-16 23:28 | Emergency Department Note ---
ED Disposition Clinical Impression: Severe sepsis with acute organ dysfunction CAP (community acquired pneumonia) Qualifiers: Laterality: left Lung location: lower lobe of lung Qualified Code(s): J18.9 - Pneumonia, unspecified organism Respiratory failure Qualifiers: Chronicity: acute on chronic Respiratory failure complication: hypoxia and hypercapnia Qualified Code(s): J96.21 - Acute and chronic respiratory failure with hypoxia; J96.22 - Acute and chronic respiratory failure with hypercapnia Disposition: Admitted as Observation Condition on Discharge: Good Referrals: Damien Bird MD [Primary Care Provider] - - Critical Care Critical Care Time: No Attestation: On 11/16/19, the high probability of a clinically significant, sudden or life threatening deterioration of the following system(s) required my full and direct attention, intervention and personal management. The time I documented below is in addition to time spent performing reported procedures but includes the following listed in this critical care notation. Medical Decision Making - Medical Records Medical records reviewed: Yes: I reviewed the patient's medical records. - Carlos A Inquiry Pt receiving controlled substance: No Vital Signs: 11/16/19 23:05 Temperature 100.5 F H Temperature Source Rectal Pulse Rate [Right] 104 H Respiratory Rate 32 H Blood Pressure [Right Arm] 169/116 H Blood Pressure Mean [Right Arm] 133 02 Sat by Pulse Oximetry 47 L Oxygen Delivery Method Nasal Cannula Oxygen Flow Rate (LPM) 2 - Lab Data Lab results reviewed: Yes: I reviewed the patient's lab results. Lab Results 11/16/19 23:10: WBC 22.1 H*, RBC 4.25, Hgb 12.9, Hct 43.3, MCV 101.9 H, MCH 30.2, MCHC 29.7 L, RDW 15.1, Plt Count 222, MPV 8.4, Neut % (Auto) 88.4 H, Lymph % (Auto) 6.7 L, [place] % (Auto) 4.5, Eos % (Auto) 0.2, Baso % (Auto) 0.2, Neut # (Auto) 19.6 H, Lymph # (Auto) 1.5, [place] # (Auto) 1.0, Eos # (Auto) 0.0, Baso # (Auto) 0.0, Total Counted 100, Neutrophils % (Manual) 85 H, Band Neutrophils % 4.0, Lymphocytes % (Manual) 7 L, Monocytes % (Manual) 3, Eosinophils % (Manual) 1, Platelet Estimate Normal, Hypochromasia 3+, Macrocytosis 2+ 11/16/19 23:10: Sodium 141, Potassium 4.0, Chloride 101, Carbon Dioxide 32 H, Anion Gap 12.0, BUN 38 H, Creatinine 1.40 H, Estimated Creat Clear 27, Estimated GFR 36 L, Est GFR ( Amer) 43 L, Glucose 205 H, Calcium 9.2, Total Bilirubin 0.3, AST 30, ALT 16, Alkaline Phosphatase 99, Total Protein 7.2, Albumin 4.1, Globulin 3.1, Albumin/Globulin Ratio 1.3, Amylase 35, Lipase 41 11/16/19 23:10: Lactate 1.3 11/16/19 23:18: Specimen Source R/r, O2 % 100, ABG pH 7.27 L, ABG pCO2 62.3 H, ABG pO2 68.3 L, ABG HCO3 27.8 H, ABG Total CO2 29.7 H, ABG O2 Saturation 91, ABG Base Excess 0.8, Esau Test Y 11/16/19 23:20: Urine Color Yellow, Urine Appearance Sl cloudy, Urine pH 5.0, Ur Specific [place] 1.025, Urine Protein Trace, Urine Glucose (UA) Negative, Urine Ketones Negative, Urine Blood 1+, Urine Nitrate Negative, Urine Bilirubin Negative, Urine Urobilinogen 0.2, Ur Leukocyte Esterase Negative, Urine RBC 20- 50, Urine WBC 5-10, Ur Squamous Epith Cells 5-10 Result diagrams: 11/16/19 23:10 11/16/19 23:10 Orders (Tests/Meds): ORDERS Category Date Time Status XR chest portable Stat Exams 11/16/19 23:16 Taken Amylase Stat Lab 11/16/19 23:10 Results Comprehensive Metabolic Panel Stat Lab 11/16/19 23:10 Results Lipase Stat Lab 11/16/19 23:10 Results Rapid Influenza A&B Antigens Stat Lab 11/16/19 23:10 Received Troponin I Q3H Lab 11/17/19 02:30 Ordered Troponin I Q3H Lab 11/17/19 05:30 Ordered Troponin I Stat Lab 11/16/19 23:10 Results Blood Culture Stat Micro 11/16/19 23:10 Received Arterial Blood Gas Stat RT 11/16/19 23:34 Stop Req 12-lead EKG Request [ECG Request by /Irma] Stat Y 11/16/19 23:16 Ordered - Radiology Data #1 Image(s): Chest Image Reviewed: Yes I reviewed the patient's radiology image Preliminary Findings: Abnormal (lt inflitrate ) - ECG Data Tracing #1 Normal Sinus Rhythm: Yes Ischemic changes: non-specific ST-T wave changes Tracing #2 Normal Sinus Rhythm: Yes Ischemic changes: non-specific ST-T wave changes, t wave inversions - Physician Consults Physician Consulted: saroj Reason -: Admission Resp/SOB HPI - General Chief Complaint: Shortness of Breath/Dyspnea Stated Complaint: SOA Time Seen by Provider: 11/16/19 23:15 Mode of Arrival: Wheelchair Source of Information: Patient, Relative, Medical Record Limitations: No Limitations Description of Symptoms (Recalled from ER Triage Doc. by RN): PATIENT ARRIVES TO ED VIA POV BY FAMILY C/O DIFFICULTY BREATHING AND LOW O2 SATS. STATES THIS AM, PATIENT WAS COMPLAINING OF L LEG PAIN. STATES HE ADMINISTERED PRESCRIBED XANAX THAT REPORTEDLY SEEMED TO HELP ACCORDING TO . REPORTS PATIENT HAS HAD LOW O2 SATS "ALL DAY" WITH SATS IN THE 80'S. STATES OVER THE LAST 2 HOURS, NOTICED THAT PATIENT'S O2 SATS KEPT DROPPING INTO THE 60'S AND 50'S. PATIENT HAS A HISTORY OF "RECURRING PNEUMONIA" REQUIRING 2L NC HOME O2. PATIENT ARRIVES TO ED VERY LETHARGIC, WITH O2 SATS IN TH 40'S AND 50'S. NONREBREATHER APPLIED AT 15L. RT NOTIFIED. - History of Present Illness pt with inc sob and dec mental status -over the last few days - no reported chest pain MD Complaint: shortness of breath Onset (ago): day(s) Severity: moderate Known history of: other (cva) Associated symptoms: denies other symptoms - Related Data Home oxygen amount: 2 liters Home Medications Medication Instructions Recorded Confirmed ALPRAZolam [Xanax 1mg tab] 1 mg PO TIDP PRN 10/16/17 11/16/19 Gabapentin [Gabapentin 300mg Cap] 300 mg PO TID 10/16/17 11/16/19 Metoprolol Tartrate [Lopressor 25 mg PO BID 10/16/17 11/16/19 25mg tablet] Morphine Sulfate [Morphine Sulfate 30 mg PO HS 10/16/17 11/16/19 ER 30mg Cap] Ropinirole HCl 1 mg PO HS 10/16/17 11/16/19 levothyroxine 75 mcg tablet 75 mcg PO DAILY tab 10/23/17 11/16/19 Aspirin [Aspir 81] 81 mg PO DAILY 10/29/17 11/16/19 Ticagrelor [Brilinta 90mg Tablet] 90 mg PO BID 10/29/17 11/16/19 Cetirizine HCl 10 mg PO DAILY 12/30/17 11/16/19 Sennosides/Docusate Sodium [Stool 240 mg PO BID 12/30/17 11/16/19 Softener-Laxative Tablet] Albuterol Sulfate [Albuterol 3 ml IH TID 12/31/17 11/16/19 0.083% 2.5mg/3mL neb] Baclofen [Lioresal 10mg tablet] 10 mg PO HS 07/17/19 11/16/19 Docusate Calcium 240 mg PO BID 07/17/19 11/16/19 Omeprazole [Omeprazole 20mg 20 mg PO DAILY 07/17/19 11/16/19 Capsule] Spironolactone [Spironolactone 25 mg PO DAILY 11/16/19 11/16/19 25mg Tablet] Allergies Allergy/AdvReac Type Severity Reaction Status Date / Time loratadine [From CLARITIN] AdvReac Intermediate Drowsy Verified 09/01/19 09:05 [facility] History - Hepatitis A Screen Drug use history?: No High risk sexual behaviors?: No History of sexually transmitted infection?: No Currently employed?: No Childcare worker?: No Do you have indoor plumbing?: Yes Do you have electricity?: Yes Attestation statement:: This patient has been screened for Hepatitis A risk factors. I have reviewed the patient's past medical history: Yes Medical History: Reports:: Anxiety, Atrial Fibrillation, Cancer, Congestive Heart Failure, Chronic Obstructive Pulmonary Disease (COPD), Coronary Artery Disease, Cerebrovascular Accident, Hyperlipidemia, Hypertension, Myocardial Infarction, Seizures Denies:: Diabetes Mellitus Type 1, Diabetes Mellitus Type 2, MRSA Other Medical History: Reports: Hypothyroidism Laterality Cases: Bilateral: Tonsillectomy Other Surgeries: Yes: Cardiac Catheterization, Hysterectomy-Total, Other (LHC- stents) Amputation: No Fractures: No Comment: Excision of benign meningiomas - Social History Smoking Status: Never smoker Alcohol Intake: never Alcohol Intake Frequency:: other Substance Use Type: denies use Occupational Status: disabled Housing: house Household Members: spouse, family - Psychiatric History Pschychiatric History:: Reports:: Anxiety Family Hx:: No significant family history ROS Obtained: Yes All systems reviewed & no additional complaints - Constitutional Constitutional: Denies fever(s) - Eyes Eyes: Denies change in vision - ENT Ears, Nose, Mouth, and Throat: Denies sore throat - Cardiovascular Cardiovascular: Denies chest pain, Reports dyspnea - Respiratory Respiratory: No cough, No coughing up blood - Gastrointestinal Gastrointestingal: Denies: abdominal pain, vomiting - Genitourinary Female Genitourinary: Denies hematuria - Musculoskeletal Musculoskeletal: Denies joint swelling - Integumentary/Breasts Skin/Breast: Denies rash - Neurologic Neurologic: Denies headache(s), Denies seizure-like activity Physical Exam - General General appearance: in no apparent distress, lethargic - Head Head exam: normocephalic - Eye Eye exam: Present: PERRL, EOMI. Absent: scleral icterus - ENT ENT exam: Present: mucous membranes dry - Neck Neck exam: Present: trachea midline - Respiratory Respiratory exam: Present: other (dec bs bilat ). Absent: respiratory distress - Cardiovascular Cardiovascular exam: Present: regular rate, systolic murmur, +S4 - Abdominal Exam Abdominal exam: Present: soft. Absent: tenderness - Extremities Exam Extremities exam: Absent: joint swelling - Neurological Exam Neurological exam: Present: alert, CN II-XII intact - Skin Skin exam: Absent: rash
[2019-11-16 23:29] LABS: White Blood Count 22.1 K/mm3 (4.8-10.8)
[2019-11-16 23:30] LABS: Microscopic, Urine URINE MICROSCOPIC (MICROSCOPIC)
[2019-11-16 23:32] LABS: Appearance,Urine SL CLOUDY (Clear); Bilirubin,Urine Negative (Negative); Blood, Urine 1+ (Negative); Color,Urine YELLOW (Yellow); Glucose,Urine (UA) Negative (Negative); Ketones,Urine Negative (Negative); Leukocyte Esterase,Urine Negative (Negative); Protein,Urine TRACE (Negative); Specific Gravity, Urine 1.025 (1.005-1.030); Urobilinogen,Urine 0.2 EU/dl (0.2)
[2019-11-16 23:33] LABS: Alanine Aminotransferase 16 U/L (12-78); Albumin Level 4.1 g/dl (3.5-5.0); Albumin/Globulin Ratio 1.3 (1.1-1.8); Alkaline Phosphatase 99 U/L (38-126); Amylase 35 U/L (30-110); Aspartate Amino Transferase 30 U/L (14-36); Bilirubin,Total 0.3 mg/dl (0.2-1.3); Blood Urea Nitrogen 38 mg/dl (7-17); Calcium 9.2 mg/dl (8.4-10.2); Carbon Dioxide 32 mmol/L (22.0-30.0); Chloride 101 mmol/L (98-107); Globulin 3.1 g/dL (1.3-3.2); Glucose 205 mg/dl (74-100); Sodium 141 mmol/L (136-145); Total Protein,Serum 7.2 g/dl (6.3-8.2)
[2019-11-16 23:38] LABS: RBC,Urine 20-50 #/hpf (0-3)
[2019-11-16 23:40] LABS: Eosinophils % 1 % (0-3); Hypochromasia 3+; Lymphocytes % 7 % (10-50); Macrocytosis 2+; Monocytes % 3 % (2-9); Neutrophils % 85 % (42-76); Total Cells Counted 100
[2019-11-17 06:14] LABS: Basophils % 0.3 % (0.1-2.0); Eosinophils % 0.1 % (0.1-12.0); Hemoglobin 11.9 g/dL (12.2-16.2); Lymphocytes # 0.8 K/mm3 (0.7-4.5); Lymphocytes % 6.7 % (10-50); Mean Corpuscular HGB Conc 30.6 g/dL (31.8-35.4); Mean Corpuscular Volume 100.4 fl (81-99); Mean Platelet Volume 8.6 fl (7.4-10.4); Monocytes # 0.8 K/mm3 (0.1-1.0); Monocytes % 7.3 % (1.7-9.3); Neutrophils # 9.5 K/mm3 (1.8-7.8); Neutrophils % 85.5 % (37.0-80.0); Platelet Count 152 K/mm3 (142-424); Red Blood Count 3.88 M/mm3 (4.20-5.40); Red Cell Distribution Width 15.1 % (11.5-17.5); White Blood Count 11.1 K/mm3 (4.8-10.8)
[2019-11-17 06:27] LABS: ABG Base Excess -0.2 mmol/L (-2.4-2.3); ABG HCO3 26.1 mmhg (22.0-26.0); ABG Oxygen Saturation 87 % (90-100); ABG PH 7.31 mmol/L (7.35-7.45); ABG PO2 52.4 mmhg (80-100); ABG TCO2 27.7 mmhg (23-27)
[2019-11-17 06:30] LABS: Allen's Test ACCEPTABLE; Oxygen 60 %
[2019-11-17 06:51] LABS: Anion Gap 10.3 mEq/L (5-15); Calcium 8.8 mg/dl (8.4-10.2)
--- NOTE | 2019-11-17 07:23 | Pharmacy Consult Notes ---
[facility] Pharmacy VTE Monitoring - Patient Demographics Admission date: 11/17/19 Report Date: 11/17/19 Time: 07:21 Allergies/Adverse Reactions: Patient Allergies loratadine [From CLARITIN] Adverse Reaction (Intermediate, Verified 09/01/19 09:05) Drowsy Height: 1.63 m Weight: 98.09 kg Patient Problems: Current Active Problems CAP (community acquired pneumonia) (Acute) Severe sepsis with acute organ dysfunction (Acute) Respiratory failure (Acute) - VTE Risk Labs: VTE Related Lab Results Hgb 11.9 g/dL (12.2-16.2) L 11/17/19 05:55 Hct 39.0 % (37.0-47.0) 11/17/19 05:55 Plt Count 152 K/mm3 (142-424) D 11/17/19 05:55 BUN 32 mg/dl (7-17) H 11/17/19 05:55 Creatinine 1.00 mg/dl (0.52-1.04) D 11/17/19 05:55 Estimated Creat Clear 63 mL/min (50-200) 11/17/19 05:55 Was VTE Risk Assessment Performed: Yes VTE Score: 7 VTE Risk Level: Moderate Risk - Prophylaxis VTE Prophylaxis Ordered?: Yes Types of VTE Prophylaxis: TEDS Knee High Location of Applied Device: Bilateral Lower Extremeties
--- NOTE | 2019-11-17 07:57 | History & Physical Report ---
*Admission Date: 11/17/19 *Chief complaint: Shortness of breath *History of present illness: 84-year-old female with prior stroke presented to the emergency department after family witnessed her getting choked while taking a drink of 7-Up. Patient had immediate onset of cough and ultimately family believes she was able to clear the liquid. She did vomit. She has a history of aspiration into the right lung. Almost immediately after this episode patient became hypoxic at home with rapidly declining level of consciousness. When family could not get her aroused she was brought to the emergency department. Earlier on during the day the patient had been given a Xanax due to pain in the left leg which her admits sedated her. In the emergency department she had a fever as well as hypoxia. ABG showed a respiratory acidosis with both hypercapnia and hypoxemia. Patient was started on BiPAP and admitted. [facility] History I have reviewed the patient's past medical history: Yes Medical History: Reports:: Anxiety, Atrial Fibrillation, Cancer, Congestive Heart Failure, Chronic Obstructive Pulmonary Disease (COPD), Coronary Artery Disease, Cerebrovascular Accident, Hyperlipidemia, Hypertension, Myocardial Infarction, Seizures Denies:: Diabetes Mellitus Type 1, Diabetes Mellitus Type 2, MRSA *Have you ever received a pneumonia vaccine?: Yes *Have you received a flu vaccine this season?: Yes Other Medical History: Reports: Hypothyroidism, Thyroid Disease Laterality Cases: Bilateral: Tonsillectomy Other Surgeries: Yes: Cardiac Catheterization, Coronary Stent, Hysterectomy- Total, Other (LHC-stents) Amputation: No Fractures: Yes (FX PELVIS) - *Social History Educational Level: Attended Grade School Smoking Status: Never smoker Alcohol Intake: never Alcohol Intake Frequency:: other Substance Use Type: denies use *Occupational Status:: retired Housing: house Household Members: significant other *Travel in the last 8 weeks: None - Psychiatric History Pschychiatric History:: Reports:: Anxiety Family Hx:: Unable to obtain Review of Systems - Review of Systems Review of systems:: unable to obtain - *Neurologic Denies headache(s), Denies seizure-like activity Meds Home Medications Medication Instructions Recorded Confirmed Type ALPRAZolam [Xanax 1mg tab] 1 mg PO TIDP PRN 10/16/17 11/17/19 History Gabapentin [Gabapentin 300mg Cap] 300 mg PO TID 10/16/17 11/17/19 History Metoprolol Tartrate [Lopressor 25 mg PO BID 10/16/17 11/17/19 History 25mg tablet] Morphine Sulfate [Morphine Sulfate 30 mg PO HS 10/16/17 11/17/19 History ER 30mg Cap] levothyroxine 75 mcg tablet 75 mcg PO DAILY tab 10/23/17 11/17/19 History Aspirin [Aspir 81] 81 mg PO DAILY 10/29/17 11/17/19 History Ticagrelor [Brilinta 90mg Tablet] 90 mg PO BID 10/29/17 11/17/19 History Sennosides/Docusate Sodium [Stool 240 mg PO BID 12/30/17 11/17/19 History Softener-Laxative Tablet] Albuterol Sulfate [Albuterol 3 ml IH TID 12/31/17 11/17/19 History 0.083% 2.5mg/3mL neb] Baclofen [Lioresal 10mg tablet] 10 mg PO DAILY 07/17/19 11/17/19 History Omeprazole [Omeprazole 20mg 20 mg PO DAILY 07/17/19 11/17/19 History Capsule] Spironolactone [Spironolactone 25 mg PO DAILY 11/16/19 11/17/19 History 25mg Tablet] Amlodipine Besylate [Amlodipine 5 mg PO BID 11/17/19 11/17/19 History 5mg tab] Benazepril HCl 20 mg PO BID 11/17/19 11/17/19 History Cetirizine HCl 10 mg PO DAILY 11/17/19 11/17/19 History Ropinirole HCl 1 mg PO DAILY 11/17/19 11/17/19 History Allergies Allergy/AdvReac Type Severity Reaction Status Date / Time loratadine [From CLARITIN] AdvReac Intermediate Drowsy Verified 09/01/19 09:05 Exam Vital signs and Labs for Last 24 Hours: Temp Pulse Resp BP Pulse Ox 98.0 F 105 H 19 145/63 H 91 L 11/17/19 04:00 11/17/19 06:21 11/17/19 04:00 11/17/19 04:00 11/17/19 04:00 Laboratory Results - last 24 hr 11/16/19 23:10: WBC 22.1 H*, RBC 4.25, Hgb 12.9, Hct 43.3, MCV 101.9 H, MCH 30.2, MCHC 29.7 L, RDW 15.1, Plt Count 222, MPV 8.4, Neut % (Auto) 88.4 H, Lymph % (Auto) 6.7 L, [place] % (Auto) 4.5, Eos % (Auto) 0.2, Baso % (Auto) 0.2, Neut # (Auto) 19.6 H, Lymph # (Auto) 1.5, [place] # (Auto) 1.0, Eos # (Auto) 0.0, Baso # (Auto) 0.0, Total Counted 100, Neutrophils % (Manual) 85 H, Band Neutrophils % 4.0, Lymphocytes % (Manual) 7 L, Monocytes % (Manual) 3, Eosinophils % (Manual) 1, Platelet Estimate Normal, Hypochromasia 3+, Macrocytosis 2+ 11/16/19 23:10: Sodium 141, Potassium 4.0, Chloride 101, Carbon Dioxide 32 H, Anion Gap 12.0, BUN 38 H, Creatinine 1.40 H, Estimated Creat Clear 27, Estimated GFR 36 L, Est GFR ( Amer) 43 L, Glucose 205 H, Calcium 9.2, Total Bilirubin 0.3, AST 30, ALT 16, Alkaline Phosphatase 99, Troponin I < 0.01, Total Protein 7.2, Albumin 4.1, Globulin 3.1, Albumin/Globulin Ratio 1.3, Amylase 35, Lipase 41 11/16/19 23:10: Lactate 1.3 11/16/19 23:10: Influenza Type A Ag Negative, Influenza Type B Ag Negative 11/16/19 23:18: Specimen Source R/r, O2 % 100, ABG pH 7.27 L, ABG pCO2 62.3 H, ABG pO2 68.3 L, ABG HCO3 27.8 H, ABG Total CO2 29.7 H, ABG O2 Saturation 91, ABG Base Excess 0.8, Esau Test Y 11/16/19 23:20: Urine Color Yellow, Urine Appearance Sl cloudy, Urine pH 5.0, Ur Specific [place] 1.025, Urine Protein Trace, Urine Glucose (UA) Negative, Urine Ketones Negative, Urine Blood 1+, Urine Nitrate Negative, Urine Bilirubin Negative, Urine Urobilinogen 0.2, Ur Leukocyte Esterase Negative, Urine RBC 20- 50, Urine WBC 5-10, Ur Squamous Epith Cells 5-10 11/17/19 02:30: Troponin I < 0.01 11/17/19 05:55: Sodium 140, Potassium 3.3 L, Chloride 107, Carbon Dioxide 26, Anion Gap 10.3, BUN 32 H, Creatinine 1.00 D, Estimated Creat Clear 63, Estimated GFR 53 L, Est GFR ( Amer) 64 D, Glucose 179 H, Calcium 8.8, Magnesium 1.6, Troponin I 0.02 11/17/19 05:55: WBC 11.1 H D, RBC 3.88 L, Hgb 11.9 L, Hct 39.0, MCV 100.4 H, MCH 30.8, MCHC 30.6 L, RDW 15.1, Plt Count 152 D, MPV 8.6, Neut % (Auto) 85.5 H, Lymph % (Auto) 6.7 L, [place] % (Auto) 7.3, Eos % (Auto) 0.1, Baso % (Auto) 0.3, Neut # (Auto) 9.5 H, Lymph # (Auto) 0.8, [place] # (Auto) 0.8, Eos # (Auto) 0.0, Baso # (Auto) 0.0 11/17/19 06:29: Specimen Source Right brachial, O2 % 60, ABG pH 7.31 L, ABG pCO2 53.0 H, ABG pO2 52.4 L, ABG HCO3 26.1 H, ABG Total CO2 27.7 H, ABG O2 Saturation 87 L*, ABG Base Excess -0.2, Esau Test Acceptable I & O for Last 24 hours: Intake & Output 11/14/19 11/15/19 11/16/19 11/17/19 11:59 11:59 11:59 11:59 Intake Total 204 / 204 Output Total 300 / 300 Balance -96 / -96 Weight 216 lb 4.023 oz Narrative: Patient is laying on her right side in bed with BiPAP in place. She does open her eyes when her name is called. She does attempt to answer questions but her voice is weak. Scalp is without lesions. Pupils are reactive to light. Oropharynx is dry from use of BiPAP. Neck is without lymphadenopathy. Lungs have distant breath sounds throughout with rhonchi heard in the right midlung anteriorly. Heart has a rapid rate and rhythm. Abdomen is soft and nontender. Extremities are without edema although she does have palpable tenderness along the left leg musculature Assessment and Plan (1) Acute respiratory failure with hypoxia and hypercapnia Current visit: Yes Status: Acute Category: Medical Code(s): J96.01 - Acute respiratory failure with hypoxia; J96.02 - Acute respiratory failure with hypercapnia (2) Acute exacerbation of chronic obstructive airways disease Current visit: No Status: Acute Category: Medical Code(s): J44.1 - Chronic obstructive pulmonary disease with (acute) exacerbation (3) Aspiration pneumonia Current visit: No Status: Acute Category: Medical Code(s): J69.0 - Pneumonitis due to inhalation of food and vomit (4) CVA (cerebral vascular accident) Current visit: No Status: Chronic Qualifiers: Category: Medical Code(s): I63.9 - Cerebral infarction, unspecified (5) Coronary artery disease Current visit: No Status: Chronic Qualifiers: Category: Medical Code(s): I25.10 - Atherosclerotic heart disease of [place] coronary artery without angina pectoris (6) Diabetes mellitus type 2 in nonobese Current visit: No Status: Chronic Category: Medical Code(s): E11.9 - Type 2 diabetes mellitus without complications (7) Pulmonary hypertension Current visit: No Status: Chronic Category: Medical Code(s): I27.20 - Pulmonary hypertension, unspecified - Assessment and plan all Dx Assessment and Plan for all problems:: 1. Patient is failed attempt to wean BiPAP this morning and will be placed back on BiPAP. 2. Continue duo nebs 4 times a day along with IV steroids for COPD exacerbation 3. Patient will be started on Zosyn for aspiration pneumonia 4. Doppler of the left leg to rule out DVT. Patient be given a single dose of Lovenox this morning
--- NOTE | 2019-11-17 19:14 | Cardiology Report ---
APPROVED REPORT Bilateral Lower Extremity Venous Study for Junior Data Analyst: AREN Indications Lower Extremity Pain: Lower Extremity Edema: Shortness of breath left leg pain, sedentary, acute hypoxia Vein Imaging CFV (R): compressive, spontaneous, phasic, augmentation FEM (R): compressive, spontaneous, phasic, augmentation POP (R): compressive, spontaneous, phasic, augmentation DFV (R): compressive, spontaneous, phasic, augmentation PTV (R): Compressible GSV (R): Compressible Peroneals (R):Compressible CFV (L): compressive, spontaneous, phasic, augmentation FEM (L): compressive, spontaneous, phasic, augmentation POP (L): compressive, spontaneous, phasic, augmentation DFV (L): compressive, spontaneous, phasic, augmentation PTV (L): Compressible GSV (L): Compressible Peroneals (L):Compressible Findings No evidence of DVT or superficial thrombophlebitis in the veins scanned of the right lower extremity. No evidence of DVT or superficial thrombophlebitis in the veins scanned of the left lower extremity. Technically limited exam secondary to inability to position legs Conclusion No evidence of DVT or superficial thrombophlebitis in the veins scanned of the right lower extremity. No evidence of DVT or superficial thrombophlebitis in the veins scanned of the left lower extremity. Electronically signed by : Esau Ta MD 11/17/2019 19:14:02
--- NOTE | 2019-11-18 07:36 | Progress Note ---
Internal Medicine - PN: Subj *Date: 11/18/19 *Time: 07:34 Interval history: Patient had some decrease in O2 sats overnight and BiPAP was reattempted but patient could not tolerate because of complaints of smothering. This morning she admits to feeling short of breath. She denies pain. is at bedside. Exam Vital signs and Labs for Last 24 Hours: Temp Pulse Resp BP Pulse Ox 98.9 F 84 18 141/54 H 90 L 11/18/19 04:00 11/18/19 06:12 11/18/19 04:00 11/18/19 04:00 11/18/19 06:12 Laboratory Results - last 24 hr 11/17/19 20:22: POC Glucose 179 H I & O for Last 24 hours: Intake & Output 11/15/19 11/16/19 11/17/19 11/18/19 11:59 11:59 11:59 11:59 Intake Total 204 / 204 2147 / 2147 Output Total 300 / 300 300 / 300 Balance -96 / -96 1847 / 1847 Weight 216 lb 4.023 oz 141 lb 4 oz Microbiology Reports for the Last 24 Hours: Microbiology 11/16/19 23:10 Blood Blood Culture - Preliminary Narrative: Patient appears comfortable with Ventimask on. Lungs have poor aeration both anteriorly and posteriorly with rales heard best in posterior bilateral lung yoder. Heart has a regular rate and rhythm. Lower extremities have no edema. Assessment and Plan (1) Acute respiratory failure with hypoxia and hypercapnia Current visit: Yes Status: Acute Category: Medical Code(s): J96.01 - Acute respiratory failure with hypoxia; J96.02 - Acute respiratory failure with hypercapnia (2) Acute exacerbation of chronic obstructive airways disease Current visit: No Status: Acute Category: Medical Code(s): J44.1 - Chronic obstructive pulmonary disease with (acute) exacerbation (3) Aspiration pneumonia Current visit: No Status: Acute Category: Medical Code(s): J69.0 - Pneumonitis due to inhalation of food and vomit (4) CVA (cerebral vascular accident) Current visit: No Status: Chronic Qualifiers: Category: Medical Code(s): I63.9 - Cerebral infarction, unspecified (5) Coronary artery disease Current visit: No Status: Chronic Qualifiers: Category: Medical Code(s): I25.10 - Atherosclerotic heart disease of [place] coronary artery without angina pectoris (6) Diabetes mellitus type 2 in nonobese Current visit: No Status: Chronic Category: Medical Code(s): E11.9 - Type 2 diabetes mellitus without complications (7) Pulmonary hypertension Current visit: No Status: Chronic Category: Medical Code(s): I27.20 - Pulmonary hypertension, unspecified - Assessment and plan all Dx Assessment and Plan for all problems:: Single blood culture is growing what could possibly be MRSA. Patient will be empirically started on vancomycin and continued on Zosyn while awaiting blood cultures. Patient is been encouraged to become more aggressive with her use of the incentive spirometer. We will get the patient out of bed to chair today. If patient is able to remain more awake and alert Vega catheter can be removed
--- NOTE | 2019-11-18 08:34 | Pharmacy Consult Notes ---
- Pharmacy Consult Date: 11/18/19 Time: 08:32 Referring provider: DR. ESPARZA Reason for Consult:: VANCOMYCIN DOSING Allergies and ADEs:: Allergies Allergy/AdvReac Type Severity Reaction Status Date / Time loratadine [From CLARITIN] AdvReac Intermediate Drowsy Verified 09/01/19 09:05 Home Medications:: Home Medications Medication Instructions Recorded Confirmed Type ALPRAZolam [Xanax 1mg tab] 1 mg PO TIDP PRN 10/16/17 11/17/19 History Gabapentin [Gabapentin 300mg Cap] 300 mg PO TID 10/16/17 11/17/19 History Metoprolol Tartrate [Lopressor 25 mg PO BID 10/16/17 11/17/19 History 25mg tablet] Morphine Sulfate [Morphine Sulfate 30 mg PO HS 10/16/17 11/17/19 History ER 30mg Cap] levothyroxine 75 mcg tablet 75 mcg PO DAILY tab 10/23/17 11/17/19 History Aspirin [Aspir 81] 81 mg PO DAILY 10/29/17 11/17/19 History Ticagrelor [Brilinta 90mg Tablet] 90 mg PO BID 10/29/17 11/17/19 History Sennosides/Docusate Sodium [Stool 240 mg PO BID 12/30/17 11/17/19 History Softener-Laxative Tablet] Albuterol Sulfate [Albuterol 3 ml IH TID 12/31/17 11/17/19 History 0.083% 2.5mg/3mL neb] Baclofen [Lioresal 10mg tablet] 10 mg PO DAILY 07/17/19 11/17/19 History Omeprazole [Omeprazole 20mg 20 mg PO DAILY 07/17/19 11/17/19 History Capsule] Spironolactone [Spironolactone 25 mg PO DAILY 11/16/19 11/17/19 History 25mg Tablet] Amlodipine Besylate [Amlodipine 5 mg PO BID 11/17/19 11/17/19 History 5mg tab] Benazepril HCl 20 mg PO BID 11/17/19 11/17/19 History Cetirizine HCl 10 mg PO DAILY 11/17/19 11/17/19 History Ropinirole HCl 1 mg PO DAILY 11/17/19 11/17/19 History Height: 1.63 m Weight: 64.07 kg Laboratory Results:: Laboratory Results - last 24 hr 11/17/19 20:22: POC Glucose 179 H Medical History: Reports:: Anxiety, Atrial Fibrillation, Cancer, Congestive Heart Failure, Chronic Obstructive Pulmonary Disease (COPD), Coronary Artery Disease, Cerebrovascular Accident, Hyperlipidemia, Hypertension, Myocardial Infarction, Seizures Denies:: Diabetes Mellitus Type 1, Diabetes Mellitus Type 2, MRSA Assessment and Plan (1) Acute respiratory failure with hypoxia and hypercapnia Current visit: Yes Status: Acute Category: Medical Code(s): J96.01 - Acute respiratory failure with hypoxia; J96.02 - Acute respiratory failure with hypercapnia (2) Acute exacerbation of chronic obstructive airways disease Current visit: No Status: Acute Category: Medical Code(s): J44.1 - Chronic obstructive pulmonary disease with (acute) exacerbation (3) Aspiration pneumonia Current visit: No Status: Acute Category: Medical Code(s): J69.0 - Pneumonitis due to inhalation of food and vomit (4) CVA (cerebral vascular accident) Current visit: No Status: Chronic Qualifiers: Category: Medical Code(s): I63.9 - Cerebral infarction, unspecified (5) Coronary artery disease Current visit: No Status: Chronic Qualifiers: Category: Medical Code(s): I25.10 - Atherosclerotic heart disease of [place] coronary artery without angina pectoris (6) Diabetes mellitus type 2 in nonobese Current visit: No Status: Chronic Category: Medical Code(s): E11.9 - Type 2 diabetes mellitus without complications (7) Pulmonary hypertension Current visit: No Status: Chronic Category: Medical Code(s): I27.20 - Pulmonary hypertension, unspecified - Assessment and plan all Dx Assessment and Plan for all problems:: BASED ON PATIENT FACTORS, RECOMMEND VANCOMYCIN 1 GM IV Q24H. PHARMACY WILL FOLLOW DAILY AND ADJUST APPROPRIATE.
--- NOTE | 2019-11-18 19:47 | Cardiology Report ---
APPROVED REPORT EXAM: Comprehensive 2D, Doppler, and color-flow Echocardiogram Product Marketing Director: Maame Woodard RT(R) Ht: 5 ft 4 in Wt: 141lbs BSA: 1.69 BP: 141/54 mmHg Indications: CAD, Pneumonia, pulmonary HTN, SOB, COPD Echo Enhancing Agent Indication: Endocardial border delineation Agent(s) / Amount(s) Used: Definity 1 cc 2D Dimensions LVOT 1.87 cm (M/F) 1.5-2.5 M-Mode Dimensions RVDd 2.16 cm (0.9-2.6)LVDd 2.65 cm (3.5-5.7) LVDs 2.16 cm (3.5-5.7)IVSd 1.36 cm (0.6-1.1) PWd 0.87 cm (0.6-1.1)EF (Teich) 39.90% FS 18.50% EDV (Teich) 25.80 mL ESV (Teich) 15.50 mL LV Diastology E/A Ratio 0.95 Mitral Valve MV A Velocity 116.00 (40-130 cm/s) Left Ventricle Left atrium is mildly enlarged, left ventricle is normal size, mild concentric left ventricular hypertrophy, visually estimated ejection fraction 55% with no regional wall motion abnormality, grade 1 diastolic dysfunction seen with tissue Doppler evidence of raise left atrial pressure. Right Ventricle Right atrium and right ventricle are normal size and contractility. Aortic Valve Aortic valve is thickened and calcified leaflet chordae display good mobility, there is no aortic stenosis or aortic insufficiency. Mitral Valve Mitral valve leaflets are minimally thickened, there is no mitral stenosis, there is mild mitral regurgitation. Tricuspid Valve Tricuspid valve grossly normal, there is mild tricuspid regurgitation, calculated right ventricular systolic pressure is 46 mmHg. Pulmonic Valve Pulmonic valve is poorly visualized. Great Vessels Aortic root is normal size. Pericardium No significant pericardial effusion noted. Conclusion 1. Mildly enlarged left atrium, normal left ventricular size, mild concentric left ventricular hypertrophy, visually estimated ejection fraction 55% with no regional wall motion abnormality, Definity contrast was utilized to delineate the endocardial surfaces, grade 1 diastolic dysfunction seen with tissue Doppler evidence of raise left atrial pressure. 2. Thickened and calcified aortic valve without aortic stenosis or aortic insufficiency 3. Mild mitral and tricuspid regurgitation, calculated right ventricular systolic pressure is 46 mmHg 4. No significant pericardial effusion noted. Electronically signed by : Micky Meneses, 11/18/2019 19:46:47
--- NOTE | 2019-11-19 08:05 | Progress Note ---
Internal Medicine - PN: Subj *Date: 11/19/19 *Time: 08:03 Interval history: Patient is feeling better this morning and only reports a very "little" shortness of breath this morning. She is diuresed well over the last 24 hours. She has been weaned to oxygen via the nasal cannula. She denies pain. Exam Vital signs and Labs for Last 24 Hours: Temp Pulse Resp BP Pulse Ox 97.6 F 77 18 150/76 H 95 11/19/19 04:00 11/19/19 05:50 11/19/19 04:00 11/19/19 04:00 11/19/19 04:00 I & O for Last 24 hours: Intake & Output 11/16/19 11/17/19 11/18/19 11/19/19 11:59 11:59 11:59 11:59 Intake Total 204 / 204 2267 / 2267 732 / 732 Output Total 300 / 300 300 / 300 1700 / 1700 Balance -96 / -96 1967 / 1967 -968 / -968 Weight 216 lb 4.023 oz 141 lb 4 oz 142 lb Microbiology Reports for the Last 24 Hours: Microbiology 11/16/19 23:10 Blood Blood Culture - Preliminary NO GROWTH AFTER 48 HOURS 11/16/19 23:10 Blood Blood Culture - Preliminary Narrative: She is in no distress and looks much more comfortable this morning with nasal cannula in place. Lung exam reveals persistent crackles in the left lung with improved aeration in the right lung posteriorly. Heart has a regular rate and rhythm. Extremities are without edema. Assessment and Plan (1) Acute respiratory failure with hypoxia and hypercapnia Current visit: Yes Status: Resolved Category: Medical Code(s): J96.01 - Acute respiratory failure with hypoxia; J96.02 - Acute respiratory failure with hypercapnia (2) Acute exacerbation of chronic obstructive airways disease Current visit: No Status: Acute Category: Medical Code(s): J44.1 - Chronic obstructive pulmonary disease with (acute) exacerbation (3) Aspiration pneumonia Current visit: No Status: Acute Category: Medical Code(s): J69.0 - Pneumonitis due to inhalation of food and vomit (4) CVA (cerebral vascular accident) Current visit: No Status: Chronic Qualifiers: Category: Medical Code(s): I63.9 - Cerebral infarction, unspecified (5) Coronary artery disease Current visit: No Status: Chronic Qualifiers: Category: Medical Code(s): I25.10 - Atherosclerotic heart disease of [place] coronary artery without angina pectoris (6) Diabetes mellitus type 2 in nonobese Current visit: No Status: Chronic Category: Medical Code(s): E11.9 - Type 2 diabetes mellitus without complications (7) Pulmonary hypertension Current visit: No Status: Chronic Category: Medical Code(s): I27.20 - Pulmonary hypertension, unspecified - Assessment and plan all Dx Assessment and Plan for all problems:: 1. Continue antibiotics while awaiting for her blood culture to finalize which would appear to be growing a staphylococcal species 2. Repeat chest x-ray today 3. Will be given additional IV Lasix today 4. Anticipate discharge within the next 1 to 2 days 5. Continue incentive spirometry
--- NOTE | 2019-11-19 16:13 | Electrocardiograph Report ---
APPROVED REPORT Exam: Resting ECG HR:93 bpm ECG Measurements Heart Rate 93 AXES IL 134 P 63 QRSd 88 QRS 50 QT 360 T269 QTc 447 <Conclusion> Sinus rhythm with premature supraventricular complexes ST & T wave abnormality, consider inferior ischemia Abnormal ECG Electronically signed by : Damien Reyes, 11/19/2019 16:12:45
--- NOTE | 2019-11-20 07:34 | Progress Note ---
Internal Medicine - PN: Subj *Date: 11/20/19 *Time: 07:31 Interval history: Patient has no complaints. She is grumpy about still being in the hospital and wants to go home. She has been weaned to 3 L/min of oxygen via the nasal cannula now. Patient has had a cough that still sounds wet. Exam Vital signs and Labs for Last 24 Hours: Temp Pulse Resp BP Pulse Ox 98.6 F 72 17 160/86 H 93 L 11/20/19 04:00 11/20/19 06:47 11/20/19 04:00 11/20/19 06:04 11/20/19 06:47 I & O for Last 24 hours: Intake & Output 11/17/19 11/18/19 11/19/19 11/20/19 11:59 11:59 11:59 11:59 Intake Total 204 / 204 2267 / 2267 852 / 852 470 / 470 Output Total 300 / 300 300 / 300 2000 / 1999 500 / 500 Balance -96 / -96 1966 / 1966 -1148 / -1148 -30 / -30 Weight 216 lb 4.023 oz 141 lb 4 oz 142 lb 141 lb 15.996 oz Microbiology Reports for the Last 24 Hours: Microbiology 11/16/19 23:10 Blood Blood Culture - Preliminary Staphylococcus epidermidis 11/17/19 19:10 Sputum - Expectorated Sputum Gram Stain - Final Narrative: Patient appears comfortable in bed. Nasal cannula is in place. She shows no signs of respiratory distress. Lung exam reveals improved aeration in the left lung but persistent faint crackles. Right lung has cleared as well at the base but in the posterior upper lobe there is still some cough. Heart has regular rate and rhythm Assessment and Plan (1) Acute respiratory failure with hypoxia and hypercapnia Current visit: Yes Status: Resolved Category: Medical Code(s): J96.01 - Acute respiratory failure with hypoxia; J96.02 - Acute respiratory failure with hypercapnia (2) Acute exacerbation of chronic obstructive airways disease Current visit: No Status: Acute Category: Medical Code(s): J44.1 - Chronic obstructive pulmonary disease with (acute) exacerbation (3) Aspiration pneumonia Current visit: No Status: Acute Category: Medical Code(s): J69.0 - Pne umonitis due to inhalation of food and vomit (4) CVA (cerebral vascular accident) Current visit: No Status: Chronic Qualifiers: Category: Medical Code(s): I63.9 - Cerebral infarction, unspecified (5) Coronary artery disease Current visit: No Status: Chronic Qualifiers: Category: Medical Code(s): I25.10 - Atherosclerotic heart disease of [place] coronary artery without angina pectoris (6) Diabetes mellitus type 2 in nonobese Current visit: No Status: Chronic Category: Medical Code(s): E11.9 - Type 2 diabetes mellitus without complications (7) Pulmonary hypertension Current visit: No Status: Chronic Category: Medical Code(s): I27.20 - Pulmonary hypertension, unspecified - Assessment and plan all Dx Assessment and Plan for all problems:: 1. Patient's blood culture has grown staph epidermidis which in the aerobic bottle is considered a contaminant. I will discontinue her vancomycin. She will continue on Zosyn at this time. Patient will continue to use incentive spirometer. Ambulate as tolerated. Antihypertensives have been restarted. If patient continues to progress she will be discharged home tomorrow
--- NOTE | 2019-11-20 09:31 | Progress Note ---
Internal Medicine - PN: Subj *Date: 11/20/19 *Time: 09:28 Exam Vital signs and Labs for Last 24 Hours: Temp Pulse Resp BP Pulse Ox 97.8 F 80 20 179/75 H 95 11/20/19 07:54 11/20/19 08:44 11/20/19 08:44 11/20/19 07:54 11/20/19 08:44 I & O for Last 24 hours: Intake & Output 11/17/19 11/18/19 11/19/19 11/20/19 23:59 23:59 23:59 23:59 Intake Total 654 / 754 2549 / 2549 590 / 590 240 / 240 Output Total 300 / 300 1100 / 1750 1600 / 1700 100 / 100 Balance 354 / 454 1449 / 799 -1010 / -1110 140 / 140 Weight 61 kg 64.07 kg 64.41 kg 64.41 kg Microbiology Reports for the Last 24 Hours: Microbiology 11/17/19 19:10 Sputum - Expectorated Sputum Gram Stain - Final 11/17/19 19:10 Sputum - Expectorated Sputum Sputum Culture - Preliminary 11/16/19 23:10 Blood Blood Culture - Preliminary Staphylococcus epidermidis Assessment and Plan (1) Acute respiratory failure with hypoxia and hypercapnia Current visit: Yes Status: Resolved Category: Medical Code(s): J96.01 - Acute respiratory failure with hypoxia; J96.02 - Acute respiratory failure with hypercapnia (2) Acute exacerbation of chronic obstructive airways disease Current visit: No Status: Acute Category: Medical Code(s): J44.1 - Chronic obstructive pulmonary disease with (acute) exacerbation (3) Aspiration pneumonia Current visit: No Status: Acute Category: Medical Code(s): J69.0 - Pneumonitis due to inhalation of food and vomit (4) CVA (cerebral vascular accident) Current visit: No Status: Chronic Qualifiers: Category: Medical Code(s): I63.9 - Cerebral infarction, unspecified (5) Coronary artery disease Current visit: No Status: Chronic Qualifiers: Category: Medical Code(s): I25.10 - Atherosclerotic heart disease of [place] coronary artery without angina pectoris (6) Diabetes mellitus type 2 in nonobese Current visit: No Status: Chronic Category: Medical Code(s): E11.9 - Type 2 diabetes mellitus without complications (7) Pulmonary hypertension Current visit: No Status: Chronic Category: Medical Code(s): I27.20 - Pulmonary hypertension, unspecified The patient's infection will respond to the chosen ABx?: Yes Is the patient receiving the right drug, dose, and route?: Yes Could a more targeted ABx be ordered?: No (WBC RESPONDING, AFEBRILE)
--- NOTE | 2019-11-21 07:38 | Discharge Summary ---
General - General Admission date:: 11/17/19 Discharge date: 11/21/19 HPI HPI: 84-year-old female with prior stroke presented to the emergency department after family witnessed her getting choked while taking a drink of 7-Up. Patient had immediate onset of cough and ultimately family believes she was able to clear the liquid. She did vomit. She has a history of aspiration into the right lung. Almost immediately after this episode patient became hypoxic at home with rapidly declining level of consciousness. When family could not get her aroused she was brought to the emergency department. Earlier on during the day the patient had been given a Xanax due to pain in the left leg which her admits sedated her. In the emergency department she had a fever as well as hypoxia. ABG showed a respiratory acidosis with both hypercapnia and hypoxemia. Patient was started on BiPAP and admitted. Hospital Course Hospital Course: Patient was admitted and placed on Zosyn for aspiration pneumonia. She initially required BiPAP to correct acute respiratory failure with hypercarbia as well. Patient responded well to BiPAP and within 24 hours was weaned to Ventimask and then subsequently weaned to nasal cannula as hospitalization progressed. Patient is on oxygen via the nasal cannula at 2 L/min at home and at discharge was requiring 3 L/min. Patient had significant crackles in the left lung that responded to antibiotics but also seemingly responded to administration of Lasix. After diuresing well during the middle portion of her hospitalization breath sound significantly improved and her oxygen requirement decreased. Echocardiogram was repeated due to patient's history of coronary artery disease but echo revealed a normal ejection fraction. On November 21 patient was satting in the mid 90s on 3 L/min of oxygen via the nasal cannula. She was discharged home on Levaquin. Blood cultures initially appeared to be growing MRSA. Patient was started on vancomycin 1 day after hospitalization. A single aerobic bottle grew staph epidermidis which was considered a contaminant and vancomycin was discontinued. Patient will follow-up in my office in 1 week Objective Vital signs: Temp Pulse Resp BP Pulse Ox 98.6 F 64 16 170/82 H 94 L 11/21/19 04:00 11/21/19 06:39 11/21/19 04:00 11/21/19 04:00 11/21/19 06:39 Narrative: Patient appears comfortable this morning and shows no signs of respiratory distress. Nasal cannula is in place. Oropharynx is moist. Neck is no palpable lymphadenopathy. Lung exam reveals left basilar rales that have decreased in intensity since admission. Right lung is clear with rhonchi in the right base that are chronic. Heart has a regular rate and rhythm. Abdomen is soft and nontender. Lower extremities have no edema Results Labs on day of discharge: Preliminary micro results at discharge 11/17/19 19:10 Sputum Culture - Preliminary Sputum - Expectorated Sputum 11/16/19 23:10 Blood Culture - Preliminary Blood Staphylococcus epidermidis 11/16/19 23:10 Blood Culture - Preliminary Blood NO GROWTH AFTER 48 HOURS DS: Diagnosis - Discharge Diagnosis (1) Acute respiratory failure with hypoxia and hypercapnia Status: Resolved (2) Acute exacerbation of chronic obstructive airways disease Status: Acute (3) Aspiration pneumonia Status: Acute (4) CVA (cerebral vascular accident) Status: Chronic (5) Coronary artery disease Status: Chronic (6) Diabetes mellitus type 2 in nonobese Status: Chronic (7) Pulmonary hypertension Status: Chronic Discharge Plan - Patient Discharge Instructions ACTIVITY: Continue current activity DIET: continue same diet Patient Instructions: Pneumonia-Adult, DI for Sepsis -- Adult, DI for Respiratory Failure - Follow up Plan Follow up with: Damien Bird MD [Primary Care Provider] - Disposition: Home, Self-Halfway Medications: Home Medications Medication Instructions Recorded Confirmed Type ALPRAZolam [Xanax 1mg tab] 1 mg PO TIDP PRN 10/16/17 11/17/19 History Gabapentin [Gabapentin 300mg Cap] 300 mg PO TID 10/16/17 11/17/19 History Metoprolol Tartrate [Lopressor 25 mg PO BID 10/16/17 11/17/19 History 25mg tablet] Morphine Sulfate [Morphine Sulfate 30 mg PO HS 10/16/17 11/17/19 History ER 30mg Cap] levothyroxine 75 mcg tablet 75 mcg PO DAILY tab 10/23/17 11/17/19 History Aspirin [Aspir 81] 81 mg PO DAILY 10/29/17 11/17/19 History Ticagrelor [Brilinta 90mg Tablet] 90 mg PO BID 10/29/17 11/17/19 History Sennosides/Docusate Sodium [Stool 240 mg PO BID 12/30/17 11/17/19 History Softener-Laxative Tablet] Albuterol Sulfate [Albuterol 3 ml IH TID 12/31/17 11/17/19 History 0.083% 2.5mg/3mL neb] Baclofen [Lioresal 10mg tablet] 10 mg PO DAILY 07/17/19 11/17/19 History Omeprazole [Omeprazole 20mg 20 mg PO DAILY 07/17/19 11/17/19 History Capsule] Spironolactone [Spironolactone 25 mg PO DAILY 11/16/19 11/17/19 History 25mg Tablet] Amlodipine Besylate [Amlodipine 5 mg PO BID 11/17/19 11/17/19 History 5mg tab] Benazepril HCl 20 mg PO BID 11/17/19 11/17/19 History Cetirizine HCl 10 mg PO DAILY 11/17/19 11/17/19 History Ropinirole HCl 1 mg PO 1900 11/17/19 11/18/19 History levoFLOXacin [Levaquin 750mg 750 mg PO DAILY #7 tab 11/21/19 Rx tablet] Prescriptions/Medication Reconciliation: New levoFLOXacin [Levaquin 750mg tablet] 750 mg PO DAILY #7 tab Continued levothyroxine 75 mcg tablet 75 mcg PO DAILY tab Morphine Sulfate [Morphine Sulfate ER 30mg Cap] 30 mg PO HS Metoprolol Tartrate [Lopressor 25mg tablet] 25 mg PO BID Gabapentin [Gabapentin 300mg Cap] 300 mg PO TID ALPRAZolam [Xanax 1mg tab] 1 mg PO TIDP PRN PRN Reason: Anxiety Aspirin [Aspir 81] 81 mg PO DAILY Ticagrelor [Brilinta 90mg Tablet] 90 mg PO BID Sennosides/Docusate Sodium [Stool Softener-Laxative Tablet] 240 mg PO BID Baclofen [Lioresal 10mg tablet] 10 mg PO DAILY Amlodipine Besylate [Amlodipine 5mg tab] 5 mg PO BID Benazepril HCl 20 mg PO BID Cetirizine HCl 10 mg PO DAILY Albuterol Sulfate [Albuterol 0.083% 2.5mg/3mL neb] 3 ml IH TID Omeprazole [Omeprazole 20mg Capsule] 20 mg PO DAILY Spironolactone [Spironolactone 25mg Tablet] 25 mg PO DAILY Ropinirole HCl 1 mg PO 1899 - Problem Reconciliation Problems Reviewed?: Yes
== END 2019-11-21 09:46 | disposition home or self-care (01) | DRG 177 ==
LOC: ER 22:49 → 2ND 23:58
PROVIDERS: ADMIT Family Medicine; ATTEND Family Medicine
CPT/HCPCS: 36415; 71010; 71045; 80048; 80053; 81001; 82150; 82803; 82962; 83605; 83690; 83735; 84484; 85007; 85025; 87040; 87070; 87077; 87186; 87205; 87275; 87276; 93005; 93306; 93970; 94640; 94660; 94761; 96374; 96375; 99285; J0456; J2405; J2543; J3370; Q9957